=== PATIENT | male | born 1950 | race African-American/Black ===

== ENCOUNTER 2018-05-27 14:16 | Inpatient (IN) | payer OTHER ==
[2018-05-27] MEDS ORDERED: GlUCAGON HUMAN RECOMBINANT 1 MG/VIAL ONE ×2 (14:26→14:28)
[2018-05-27] MEDS ORDERED: DEXTROSE 50%-WATER - 25 GM/50 ML VIAL ONE ×2 (14:26→21:22)
[2018-05-27] MEDS ORDERED: SODIUM CHLORIDE 0.9% 1000 ML INFUS.BAG IV STA (14:39)
--- NOTE | 2018-05-27 14:39 | PDOC ---
Attending Attestation - Resident Resident Name: Marilynn Goldstein - ED Attending Attestation I have performed the following: I have examined & evaluated the patient, The case was reviewed & discussed with the resident, I agree w/resident's findings & plan, Exceptions are as noted - HPI HPI: 05/27/18 16:30 67 years old past medical history significant for alcoholic hepatitis, with cirrhosis and ascites, ferry to thrive, liver disease, resident at [facility] or for palliative care dysphasia muscle weakness and dementia, presents to the emergency department with hypoglycemia Upon arrival to the emergency department patient's fingerstick 30 IM glucagon given while IV access obtained One amp dextrose given as well Unable to obtain history from patient. Unable to obtain review of systems are patient. - Physicial Exam PE: 05/27/18 16:31 Vitals: Triage Vital signs reviewed General Appearance: Thin cachectic altered Head: Atraumatic, Eyes: Pupils equal reactive round, extraocular movement intact Chest Wall: Nontender Cardiac: Regular rate and rhythym,Lungs: Clear to auscultation bilateral, good air movement bilaterally, Abdomen: Soft, non distended, normal bowel sounds, non tender to palpation Extremities: Contracted Skin: See resident's note for full description of multiple ulcers Neuro: Moving all extremities in response to pain. - Medical Decision Making 05/27/18 16:33 67 years old with multiple medical problems presents to the emergency department with hypoglycemia Patient was responsive to IV dextrose Vital signs notable for hypothermia Kelsie hugger initiated. Sepsis protocol initiated. Multiple decubiti ulcer noted largest is at the left hip with involvement of bone Patient covered with IV Zosyn and vancomycin We'll be admitted to medicine for further management of hyperglycemia, possible sepsis, decubiti ulcer, hypothermia, with additional discussion of goals of care. Heart Score/ECG Review - ECG Impressions Comment:: 05/27/18 16:34 Poor baseline EKG but no QRS widening no peaked T waves no obvious ST elevations.
[2018-05-27 15:10] LABS: BASO % 0.6 % (0-2.0); HEMATOCRIT 24.8 % (35.4-49); HEMOGLOBIN 7.8 GM/dL (11.7-16.9); LYMPH % 6.1 % (8-40); MCH 25.5 pg (25.7-33.7); MCHC 31.5 g/dl (32.0-35.9); MEAN CELL VOLUME 80.9 fl (80-96); MEAN PLT VOLUME 9.6 fl (7.5-11.1); NEUT % 92.3 % (42.8-82.8); PLATELET COUNT 100 K/MM3 (134-434); RBC 3.07 M/mm3 (4.00-5.60); WHITE BLOOD COUNT 7.1 K/mm3 (4.0-10.0)
[2018-05-27 15:11] LABS: VENOUS PC02 40.2 mmHg (38-52); VENOUS PH 7.35 (7.32-7.42); VENOUS PO2 22.5 mmHg (28-48)
[2018-05-27 15:20] LABS: INR 2.12 (0.82-1.09)
[2018-05-27 15:32] LABS: URINE APPEARANCE CLEAR; URINE BILIRUBIN NEGATIVE (<2.0 mg/dL); URINE COLOR AMBER; URINE GLUCOSE (UA) NEGATIVE (NEGATIVE); URINE KETONE NEGATIVE (NEGATIVE); URINE LEUK ESTERASE NEGATIVE (NEGATIVE); URINE NITRITE NEGATIVE (NEGATIVE); URINE PROTEIN NEGATIVE (NEGATIVE); URINE UROBILINOGEN 4.0 E.U/dl mg/dL (0.2-1.0)
[2018-05-27 15:33] LABS: ALBUMIN 1.2 g/dl (3.4-5.0); ANION GAP 8 (8-16); BLOOD UREA NITROGEN 93 mg/dL (7-18); CALCIUM 7.4 mg/dL (8.5-10.1); CHLORIDE 116 mmol/L (98-107); CO2 23 mmol/L (21-32); CREATININE 2.1 mg/dL (0.7-1.3); GLUCOSE,RANDOM 181 mg/dL (74-106); POTASSIUM 5.9 mmol/L (3.5-5.1); SGOT/AST 270 U/L (15-37); SGPT/ALT 52 U/L (12-78); SODIUM 147 mmol/L (136-145)
[2018-05-27 15:40] LABS: ALK PHOS 494 U/L (45-117); BILIRUBIN,TOTAL 1.2 mg/dL (0.2-1.0); TOT PROT 8.3 g/dl (6.4-8.2)
[2018-05-27] MEDS ORDERED: VANCOMYCIN 1,000 MG in DEXTROSE 5%-WATER - 250 ML IVPB ONE (15:54)
[2018-05-27] MEDS ORDERED: PIPERACILLIN/TAZOB 4.5 GM 4.5 GM in DEXTROSE 5%-WATER 100 ML IVPB ONE (15:55)
[2018-05-27] MEDS ORDERED: SODIUM CHLORIDE 1,000 ML IV SCH (16:00)
--- NOTE | 2018-05-27 16:27 | PDOC ---
History of Present Illness - General Chief Complaint: Blood Sugar Problem Stated Complaint: LOW Sugar Problem Time Seen by Provider: 05/27/18 14:38 - History of Present Illness Initial Comments: 05/27/18 23:07 67 year old with recent diagnosis of liver CA who is BIBA from a nursing care facility with hypoglycemia of 24, and bradycardia of 40 systolic en route. He was given IM glucagon and one amp dextrose en route. He is alert but not oriented and minimally verbal. At bedside he had an initial glucose of 30, rectal temp of 91.3 with O2 sat of > 95% on 10L nonrebreather. Further history was unable to be obtained from patient. The patient is DNR. Past History - Past Medical History Allergies/Adverse Reactions: Allergies Allergy/AdvReac Type Severity Reaction Status Date / Time Fish Containing Products Allergy Intermediate Hives Verified 05/27/18 14:36 [Fish Product Derivatives] Home Medications: Ambulatory Orders Collagenase Clostridium Hist. [Santyl] 1 applic TP DAILY 05/27/18 Silver Sulfadiazine 1% Top Cr [Silvadene] 1 applic TP DAILY 05/27/18 oxyCODONE HCL [Roxicodone -] 5 mg PO Q4H 05/27/18 Anemia: No Asthma: Yes Cancer: No Cardiac Disorders: No CVA: No COPD: No CHF: No Dementia: No Diabetes: No GI Disorders: No Disorders: No HTN: No Hypercholesterolemia: No Kidney Stones: No Liver Disease: No Seizures: No Thyroid Disease: No - Surgical History Abdominal Surgery: No Appendectomy: No Cardiac Surgery: No Cholecystectomy: No Lung Surgery: No Neurologic Surgery: No Orthopedic Surgery: No (fx of left elbow 1980) - Reproductive History Testicular Surgery: No - Suicide/Smoking/Psychosocial Hx Smoking History: Unknown if ever smoked Have you smoked in the past 12 months: Yes Number of Cigarettes Smoked Daily: 20 Hx Alcohol Use: Yes Drug/Substance Use Hx: No Substance Use Type: Alcohol Hx Substance Use Treatment: Yes Review of Systems - Review of Systems Able to Perform ROS?: No (Alerted, non verbal) HEENTM: No: Tinnitus *Physical Exam - Vital Signs Last Vital Signs Temp Pulse Resp BP Pulse Ox 40 L 10 L 110/75 100 05/27/18 14:20 05/27/18 14:20 05/27/18 14:20 05/27/18 14:20 - Physical Exam Comments: 05/27/18 16:25 GENERAL: Awake alert, not oriented, contracted HEAD: No signs of trauma, normocephalic, atraumatic EYES: EOMI, sclera anicteric, conjunctiva clear ENT: dry appearing mucus membranes LUNGS: clear to auscultation bilaterally HEART: Regular rate and rhythm, normal S1 and S2, no murmurs, rubs or gallops, peripheral pulses normal and equal bilaterally. ABDOMEN: Soft, nontender, normoactive bowel sounds. No guarding, no rebound. No masses EXTREMITIES : contracted without clubbing NEUROLOGICAL: withdrawing from painful stimuli SKIN: dry skin with venous stasis changes and with multiple decubitus ulcers: R hip - 7cm diameter - stage 3 R leg medial aspect - 10cm length - stage 2 R leg lateral aspect - 10cm length - stage 2 R big toe base - 2cm - stage 2 L hip - 7cm diameter - stage 4 L leg lateral aspect - 12cm length - stage 2 L medial mallelous - 3cm - stage 2 Perinuem - 3cm - stage 2 ED Treatment Course - LABORATORY CBC & Chemistry Diagram: 05/27/18 14:55 05/27/18 20:08 - ADDITIONAL ORDERS Additional order review: Laboratory Results 05/27/18 05/27/18 05/27/18 14:55 14:55 14:55 PT with INR INR PTT (Actin FS) VBG pH 7.35 POC VBG pCO2 40.2 POC VBG pO2 22.5 L Mixed VBG HCO3 21.7 Sodium 147 H Potassium 5.9 H D Chloride 116 H D Carbon Dioxide 23 D Anion Gap 8 BUN 93 H Creatinine 2.1 H Creat Clearance w eGFR 31.76 Random Glucose 181 H D Lactic Acid 2.1 H Calcium 7.4 L Total Bilirubin 1.2 H AST 270 H D ALT 52 D Alkaline Phosphatase 494 H Troponin I < 0.02 Total Protein 8.3 H Albumin 1.2 L Urine Color Urine Appearance Urine pH Ur Specific [place] Urine Protein Urine Glucose (UA) Urine Ketones Urine Blood Urine Nitrite Urine Bilirubin Urine Urobilinogen Ur Leukocyte Esterase 05/27/18 05/27/18 14:55 14:30 PT with INR 24.00 H* INR 2.12 H PTT (Actin FS) 46.0 H VBG pH POC VBG pCO2 POC VBG pO2 Mixed VBG HCO3 Sodium Potassium Chloride Carbon Dioxide Anion Gap BUN Creatinine Creat Clearance w eGFR Random Glucose Lactic Acid Calcium Total Bilirubin AST ALT Alkaline Phosphatase Troponin I Total Protein Albumin Urine Color Lydia Urine Appearance Clear Urine pH 5.0 Ur Specific [place] 1.013 Urine Protein Negative Urine Glucose (UA) Negative Urine Ketones Negative Urine Blood Negative Urine Nitrite Negative Urine Bilirubin Negative Urine Urobilinogen 4.0 e.u/dl Ur Leukocyte Esterase Negative 05/27/18 14:55 RBC 3.07 L MCV 80.9 MCHC 31.5 L RDW 23.0 H MPV 9.6 D Neutrophils % 92.3 H Lymphocytes % 6.1 L Monocytes % 1.0 L Eosinophils % 0.0 Basophils % 0.6 Medical Decision Making - Medical Decision Making 05/27/18 19:21 67 year old with recent diagnosis of liver CA who is BIBA from a nursing care facility with hypoglycemia of 24, and bradycardia of 40 systolic en route. The patient has extensive ulcers, hypoglycemia, hypothermia and with K of 5.9. The patient requires further care and evaluation. 05/27/18 20:31 Plan to admit to ICU, does not need head CT before transport 05/27/18 23:27 Daughter contacted, Shelia [phone] *DC/Admit/Observation/Transfer Diagnosis at time of Disposition: Hypoglycemia, Hypothermia - Discharge Dispostion Condition at time of disposition: Guarded Decision to Admit order: Yes - Referrals - Patient Instructions - Post Discharge Activity
[2018-05-27] MEDS ORDERED: PIPERACILLIN/TAZOB 4.5 GM 4.5 GM/100 ML BAG IVPB ONE (16:35)
[2018-05-27] MEDS ORDERED: VANCOMYCIN 1 GRAM (PRE-DOCKED) 1,000 MG/250 ML BAG IVPB ONE (16:36)
[2018-05-27 18:29] LABS: ANISOCYTOSIS 2+
[2018-05-27 18:30] LABS: PLATELET ESTIMATE DECREASED; TARGET CELLS 1+
[2018-05-27 20:43] LABS: ANION GAP 11 (8-16); BLOOD UREA NITROGEN 96 mg/dL (7-18); CALCIUM 7.2 mg/dL (8.5-10.1); CHLORIDE 115 mmol/L (98-107); CO2 20 mmol/L (21-32); POTASSIUM 4.8 mmol/L (3.5-5.1); SODIUM 146 mmol/L (136-145)
[2018-05-27 20:57] LABS: GLUCOSE,RANDOM 24 mg/dL (74-106)
[2018-05-27] MEDS ORDERED: DEXTROSE 50%-WATER - 25 GM/50 ML VIAL IVPUSH ONE ×2 (20:58→20:59)
[2018-05-27] MEDS: SODIUM CHLORIDE 1,000 ML IV SCH ×2 (22:15→22:20)
[2018-05-27] MEDS ORDERED: PIPERACILLIN/TAZOB 3.375 GM 3.375 GM in DEXTROSE 5%-WATER - 50 ML IVPB ONE (22:16)
--- NOTE | 2018-05-27 22:20 | HP ---
CHIEF COMPLAINT: sepsis, hypothermia PCP: Fatmata HISTORY OF PRESENT ILLNESS: 67 year old with recent diagnosis of liver CA who is BIBA from a nursing care facility with hypoglycemia of 24, and bradycardia of 40 systolic en route. He was given IM glucagon and one amp dextrose en route. Patient is a very poor informant and unable to obtain much history form him and most of history is obtained from EMR. He has multiple decubitus ulcers that were foul smelling. Daughter contacted, Shelia [phone] ER course was notable for: (1) blood cultures taken (2) vancomcyin (3) zosyn Recent Travel: unknown PAST MEDICAL HISTORY: Liver cancer, etoh abuse PAST SURGICAL HISTORY: unknown Social History: Smoking: unknown Alcohol: unknown Drugs: unknown Family History: unknown Allergies Fish Containing Products [Fish Product Derivatives] Allergy (Intermediate, Verified 05/27/18 14:36) Hives DIFFICULTY BREATHING HOME MEDICATIONS: Home Medications Medication Instructions Recorded Collagenase Clostridium Hist. 1 applic TP DAILY 05/27/18 [Santyl] Silver Sulfadiazine 1% Top Cr 1 applic TP DAILY 05/27/18 [Silvadene] oxyCODONE HCL [Roxicodone -] 5 mg PO Q4H 05/27/18 REVIEW OF SYSTEMS - unable to obtain reviewed of systems as patient is non cooperative for interview PHYSICAL EXAMINATION Vital Signs - 24 hr 05/27/18 05/27/18 05/27/18 14:20 14:30 18:12 Temperature 91.2 F L Pulse Rate 40 L Pulse Rate [ 76 62 Apical] Respiratory 10 L 18 16 Rate Blood Pressure 110/75 Blood Pressure 125/84 128/75 [Right Arm] O2 Sat by Pulse 100 100 100 Oximetry (%) 05/27/18 18:30 Temperature 92.4 F L Pulse Rate Pulse Rate [ Apical] Respiratory Rate Blood Pressure Blood Pressure [Right Arm] O2 Sat by Pulse Oximetry (%) GENERAL: disoriented, malnourished, wasted HEAD:atraumatic, EYES: Pupils equal, round and reactive to light, extraocular movements intact, sclera anicteric, conjunctiva clear. No lid lag. EARS, NOSE, THROAT: Ears normal, nares patent, oropharynx clear without exudates. dry mucous membranes. NECK: Normal range of motion, supple without lymphadenopathy, JVD, or masses. LUNGS: Breath sounds equal, clear to auscultation bilaterally. No wheezes, and no crackles. No accessory muscle use. HEART: Regular rate and rhythm, normal S1 and S2 without murmur, rub or gallop. ABDOMEN: Soft, nontender, not distended, normoactive bowel sounds, no guarding, no rebound tenderness MUSCULOSKELETAL: Normal range of motion at all joints. No bony deformities or tenderness. UPPER EXTREMITIES: 2+ pulses, warm, well-perfused. No cyanosis. No clubbing. No peripheral edema. LOWER EXTREMITIES: wrapped in gauze covering ulcers NEUROLOGICAL: no focal deficits noted PSYCHIATRIC: uncooperative SKIN: several ulcer noted- R hip - 7cm diameter - stage 3 R leg medial aspect - 10cm length - stage 2 R leg lateral aspect - 10cm length - stage 2 R big toe base - 2cm - stage 2 L hip - 7cm diameter - stage 4 L leg lateral aspect - 12cm length - stage 2 L medial mallelous - 3cm - stage 2 Perinuem - 3cm - stage 2 Laboratory Results - last 24 hr 05/27/18 05/27/18 05/27/18 14:30 14:55 14:55 WBC 7.1 RBC 3.07 L Hgb 7.8 L Hct 24.8 L D MCV 80.9 MCH 25.5 L D MCHC 31.5 L RDW 23.0 H Plt Count 100 L D MPV 9.6 D Absolute Neuts (auto) 6.6 Neutrophils % 92.3 H Neutrophils % (Manual) 71.0 Band Neutrophils % 21.0 Lymphocytes % 6.1 L Lymphocytes % (Manual) 8.0 Monocytes % 1.0 L Monocytes % (Manual) 0 L Eosinophils % 0.0 Eosinophils % (Manual) 0.0 Basophils % 0.6 Basophils % (Manual) 0.0 Nucleated RBC % 0 Hypochromia 1+ Platelet Estimate Decreased Platelet Comment No clumping noted Anisocytosis 2+ Target Cells 1+ PT with INR 24.00 H* INR 2.12 H PTT (Actin FS) 46.0 H VBG pH POC VBG pCO2 POC VBG pO2 Mixed VBG HCO3 Sodium Potassium Chloride Carbon Dioxide Anion Gap BUN Creatinine Creat Clearance w eGFR Random Glucose Lactic Acid Calcium Total Bilirubin AST ALT Alkaline Phosphatase Troponin I Total Protein Albumin Urine Color Lydia Urine Appearance Clear Urine pH 5.0 Ur Specific [place] 1.013 Urine Protein Negative Urine Glucose (UA) Negative Urine Ketones Negative Urine Blood Negative Urine Nitrite Negative Urine Bilirubin Negative Urine Urobilinogen 4.0 e.u/dl Ur Leukocyte Esterase Negative Stool Occult Blood 05/27/18 05/27/18 05/27/18 14:55 14:55 14:55 WBC RBC Hgb Hct MCV MCH MCHC RDW Plt Count MPV Absolute Neuts (auto) Neutrophils % Neutrophils % (Manual) Band Neutrophils % Lymphocytes % Lymphocytes % (Manual) Monocytes % Monocytes % (Manual) Eosinophils % Eosinophils % (Manual) Basophils % Basophils % (Manual) Nucleated RBC % Hypochromia Platelet Estimate Platelet Comment Anisocytosis Target Cells PT with INR INR PTT (Actin FS) VBG pH 7.35 POC VBG pCO2 40.2 POC VBG pO2 22.5 L Mixed VBG HCO3 21.7 Sodium 147 H Potassium 5.9 H D Chloride 116 H D Carbon Dioxide 23 D Anion Gap 8 BUN 93 H Creatinine 2.1 H Creat Clearance w eGFR 31.76 Random Glucose 181 H D Lactic Acid 2.1 H Calcium 7.4 L Total Bilirubin 1.2 H AST 270 H D ALT 52 D Alkaline Phosphatase 494 H Troponin I < 0.02 Total Protein 8.3 H Albumin 1.2 L Urine Color Urine Appearance Urine pH Ur Specific [place] Urine Protein Urine Glucose (UA) Urine Ketones Urine Blood Urine Nitrite Urine Bilirubin Urine Urobilinogen Ur Leukocyte Esterase Stool Occult Blood 05/27/18 05/27/18 05/27/18 17:21 20:08 20:08 WBC RBC Hgb Hct MCV MCH MCHC RDW Plt Count MPV Absolute Neuts (auto) Neutrophils % Neutrophils % (Manual) Band Neutrophils % Lymphocytes % Lymphocytes % (Manual) Monocytes % Monocytes % (Manual) Eosinophils % Eosinophils % (Manual) Basophils % Basophils % (Manual) Nucleated RBC % Hypochromia Platelet Estimate Platelet Comment Anisocytosis Target Cells PT with INR INR PTT (Actin FS) VBG pH POC VBG pCO2 POC VBG pO2 Mixed VBG HCO3 Sodium 146 H Potassium 4.8 Chloride 115 H Carbon Dioxide 20 L Anion Gap 11 BUN 96 H Creatinine 2.0 H Creat Clearance w eGFR 33.60 Random Glucose 24 L* D Lactic Acid 3.0 H* Calcium 7.2 L Total Bilirubin AST ALT Alkaline Phosphatase Troponin I Total Protein Albumin Urine Color Urine Appearance Urine pH Ur Specific [place] Urine Protein Urine Glucose (UA) Urine Ketones Urine Blood Urine Nitrite Urine Bilirubin Urine Urobilinogen Ur Leukocyte Esterase Stool Occult Blood Negative CT of head -small left frontal subcortical white matter hypodense focus which may represent chronic or acute ischemic disease ekg reviewed- poor quality, will repeat ASSESSMENT/PLAN: 67yo cachectic man with recent diagnosis of liver ca, admitted for severe sepsis likely secondary sacral ulcers, hypothermia, requiring bairhugger and persistent hypoglycemia, incidentally, found to have small left frontal subcortical white matter hypodense focus on head CT. #severe sepsis with lactic acidosis, likely secondary to infected decubitus ulcers -admit to ICU -vancomycin 1g then by random daily levels -zosyn -gentle IV fluid hydration and repeat lactate in am -wound care to ulcers -ID consult #AMS -may be multifactorial- hypoglycemia, - vascular disease, metabolic derrangements, underlying malignancy, -fall precautions -bed rest #small left frontal subcortical white matter hypodense focus- uncertain if acute or chronic, not a candidate for TPA at this time -neurology evaluation - Dr. Jesus -ASA -statin -echo -carotid duplex # Hypothermia - likely secondary to sepsis - bairhugger -monitor temp #Hypoglycemia- now improved after glucagon and multiple dextose pushes - may be secondary to underlying liver ca -monitor fingerstick closely -start D5W/NS DVT prophylaxis -enaxaparin 40mg sc q24hrs #Advanced directives- DNR- spoke to daughter Shelia [phone] NPO for now - Visit type - Emergency Visit Emergency Visit: Yes ED Registration Date: 05/27/18 Care time: The patient presented to the Emergency Department on the above date and was hospitalized for further evaluation of their emergent condition. - New Patient This patient is new to me today: Yes Date on this admission: 05/28/18 - Critical Care Critical Care patient: Yes Total Critical Care Time (in minutes): 40 Critical Care Statement: The care of this patient involved high complexity decision making to prevent further life threatening deterioration of the patient 's condition and/or to evaluate & treat vital organ system(s) failure or risk of failure. Hospitalist Screening - Colonoscopy Questionnaire Colonoscopy Questionnaire: Colonoscopy Questionnaire - Patient: 50 - 75 years old and never had a screening colonoscopy: Yes History of colon or rectal polyps, or CA: Unknown History of IBD, Crohn's disease or UC: Unknown History of abdominal radiation therapy as a child: Unknown - Relative: 1 with colon or rectal CA, or polyps at age 60 or younger: Unknown Colon or rectal CA diagnosed at age 45 or younger: Unknown Multiple relatives with colon or rectal CA: Unknown - Outcome: Screening Result: Positive Screen
[2018-05-27 22:47] VITALS: BMI 18.8
[2018-05-27] MEDS ORDERED: PIPERACILLIN/TAZOBACTAM 3.375 GM VIAL IVPB ONE (22:52)
[2018-05-27] MEDS ORDERED: DEXTROSE 5%-WATER - 100 ML IVPB ONE (22:52)
[2018-05-27] MEDS: HEPARIN NA (PORCINE) 5,000 UNITS/ML 1ML VIAL SQ SCH (22:53)
[2018-05-28] MEDS ORDERED: ASPIRIN 81 MG CHEWABLE TABLETS PO ONE (01:43)
[2018-05-28] MEDS ORDERED: DEXTROSE 5%-WATER - 1,000 ML IV SCH (02:00)
[2018-05-28] MEDS ORDERED: DEXTROSE 50%-WATER 25 GM/50 ML DISP.SYRIN ONE ×3 (02:22→14:59)
[2018-05-28] MEDS ORDERED: DEXTROSE 50%-WATER - 25 GM/50 ML VIAL IVPUSH ONE ×2 (02:30→06:51)
[2018-05-28 05:48] LABS: BASO % 0.8 % (0-2.0); HEMATOCRIT 22.2 % (35.4-49); LYMPH % 10.1 % (8-40); MCH 25.6 pg (25.7-33.7); MCHC 31.4 g/dl (32.0-35.9); MEAN CELL VOLUME 81.4 fl (80-96); MEAN PLT VOLUME 9.9 fl (7.5-11.1); MONO % 1.5 % (3.8-10.2); NEUT % 87.6 % (42.8-82.8); RBC 2.73 M/mm3 (4.00-5.60); RDW 23.4 % (11.9-15.9); WHITE BLOOD COUNT 3.9 K/mm3 (4.0-10.0)
[2018-05-28] MEDS ORDERED: ATORVASTATIN CA 20 MG TABLET (FP) PO SCH (06:00)
[2018-05-28] MEDS: HEPARIN NA (PORCINE) 5,000 UNITS/ML 1ML VIAL SQ SCH ×3 (06:11→21:48)
[2018-05-28 06:19] LABS: ANION GAP 15 (8-16); BLOOD UREA NITROGEN 100 mg/dL (7-18); CHLORIDE 114 mmol/L (98-107); CO2 16 mmol/L (21-32); CREATININE 2.2 mg/dL (0.7-1.3); GLUCOSE,RANDOM 52 mg/dL (74-106); POTASSIUM 4.9 mmol/L (3.5-5.1); SODIUM 145 mmol/L (136-145)
[2018-05-28 06:24] LABS: CALCIUM 6.9 mg/dL (8.5-10.1)
[2018-05-28] MEDS ORDERED: PIPERACILLIN/TAZOB 3.375 GM 3.375 GM in DEXTROSE 5%-WATER - 50 ML IVPB ONE (07:06)
--- NOTE | 2018-05-28 08:14 | CONSULT ---
Consult - text type - Consultation Consultation Note: Pulm/CCM Pt seen and examined in ICU CC: hypothermic, hypoglycemic Hx obtained from medical record, pt encephalopathic HPI: Briefly Mr Fay is a 67 y/o man, resident of [place], with ETOH cirrhosis w/ end stage liver disease (ascites, coagulopathy, thrombocytopenia) who was admitted via ED for sepsis likely from multiple deep malodarous decubitus ulcer (most notably L hip), AMS, and ALBERTO. He was treated with fluid, abx, and glucagon /glucose. He had CT head which showed hypodense focus in L frontal for which he was given asa and statin (now discontinued). Pt responded well to IV glucose with improved mentation and FS appropriately increased. On exam pt is cachetic , wasted, and severely malnourished. He has a distended abd with ascites ( which has not been taped). While he is not in acute distress he does appear to be uncomfortable, especially with turning. He was made DNR by family. This morning I discussed his condition and trajectory with Daughter/HCP who agreed that we should not pursue aggressive measures. She confirmed DNR and agreed that he should not be placed on ventilator. We agreed that antibiotics and non- aggressive measures to sustain him should be done. Home Medications Medication Instructions Recorded Collagenase Clostridium Hist. 1 applic TP DAILY 05/27/18 [Santyl] Silver Sulfadiazine 1% Top Cr 1 applic TP DAILY 05/27/18 [Silvadene] oxyCODONE HCL [Roxicodone -] 5 mg PO Q4H 05/27/18 Active Medications Chlorhexidine Gluconate (Hibiclens For Decolonization -) 1 applic TP HS TIFFANIE Heparin Sodium (Porcine) (Heparin -) 5,000 unit SQ TID TIFFANIE Last Admin: 05/28/18 06:11 Dose: 5,000 unit Sodium Chloride (Normal Saline -) 1,000 mls @ 80 mls/hr IV ASDIR TIFFANIE Last Admin: 05/27/18 22:20 Dose: 80 mls/hr Dextrose (D5w -) 1,000 mls @ 42 mls/hr IV ASDIR TIFFANIE Last Admin: 05/28/18 02:26 Dose: 42 mls/hr Mupirocin (Bactroban Ointment (For Decolonization) -) 1 applic NS BID [facility] Stop: 08/02/18 09:59 Recent Travel: unknown PAST MEDICAL HISTORY: Liver cancer, etoh abuse PAST SURGICAL HISTORY: unknown Social History: Smoking: unknown Alcohol: unknown Drugs: unknown Family History: unknown Allergies Fish Containing Products [Fish Product Derivatives] Allergy (Intermediate, Verified 05/27/18 14:36) Hives DIFFICULTY BREATHING Vital Signs Temp 97.6 F 05/28/18 06:00 Pulse 82 05/28/18 06:00 Resp 18 05/28/18 06:00 BP 86/50 05/28/18 06:00 Pulse Ox 100 05/27/18 22:40 Intake & Output 05/27/18 05/27/18 05/28/18 11:59 23:59 11:59 Intake Total 504 Balance 504 Weight 56.019 kg Intake: IV 504 D5w - 1,000 ml @ 42 mls/ 504 hr IV ASDIR TIFFANIE Rx#: [id number] Other: Voiding Method Incontinent # Unmeasured Voids Void 1 2 Bowel Movement Yes Yes # Bowel Movements 1 2 Height 5 ft 8 in Body Mass Index (BMI) 18.8 Weight Measurement Method Built in [facility] Weight Measurement Method Estimated by Staff PE: Gen: wasted, eld man, position in bed HEENT: non icteric, bitemporal wasting, eomi, no obvious thrush PULM: few scattered crackles, no wheezes CV: s1s2, no m/r/g appreciated ABD; diffuse, mild tenderness, ascites, no caput EXT; multiple areas of breakdown on all bony prominences NEURO; mildly confused, withdrawals to pain, does not CBCD WBC 3.9 K/mm3 (4.0-10.0) L 05/28/18 05:30 RBC 2.73 M/mm3 (4.00-5.60) L 05/28/18 05:30 Hgb 7.0 GM/dL (11.7-16.9) L 05/28/18 05:30 Hct 22.2 % (35.4-49) L 05/28/18 05:30 MCV 81.4 fl (80-96) 05/28/18 05:30 MCHC 31.4 g/dl (32.0-35.9) L 05/28/18 05:30 RDW 23.4 % (11.9-15.9) H 05/28/18 05:30 Plt Count 100 K/MM3 (134-434) L D 05/27/18 14:55 MPV 9.9 fl (7.5-11.1) 05/28/18 05:30 CMP Sodium 145 mmol/L (136-145) 05/28/18 05:30 Potassium 4.9 mmol/L (3.5-5.1) 05/28/18 05:30 Chloride 114 mmol/L (98-107) H 05/28/18 05:30 Carbon Dioxide 16 mmol/L (21-32) L 05/28/18 05:30 Anion Gap 15 (8-16) 05/28/18 05:30 BUN 100 mg/dL (7-18) H 05/28/18 05:30 Creatinine 2.2 mg/dL (0.7-1.3) H 05/28/18 05:30 Creat Clearance w eGFR 30.10 (>60) 05/28/18 05:30 Random Glucose 52 mg/dL (74-106) L D 05/28/18 05:30 Calcium 6.9 mg/dL (8.5-10.1) L* 05/28/18 05:30 Total Bilirubin 1.2 mg/dL (0.2-1.0) H 05/27/18 14:55 AST 270 U/L (15-37) H D 05/27/18 14:55 ALT 52 U/L (12-78) D 05/27/18 14:55 Alkaline Phosphatase 494 U/L (45-117) H 05/27/18 14:55 Total Protein 8.3 g/dl (6.4-8.2) H 05/27/18 14:55 Albumin 1.2 g/dl (3.4-5.0) L 05/27/18 14:55 CARDIAC ENZYMES Troponin I < 0.02 ng/ml (0.00-0.05) 05/27/18 14:55 Blood and urine cxl pending EKG: Sinus, rate 80, TW flattening in lateral leads, normal intervals and access CXR: R> L effusion, ?hepatohydrothorax A/ 67 y/o man with ESLD now with hypoglycemia and sepsis likely from multiple decubitus ulcers and possible SBP improving on abx and IV fluids P/ -abx as per ID, vanc by level, pip/sera -cont IV D5--to D10 -no asa or statin given coagulopathy and hepatic failure -given goals of care as discussed with daughter...will d/c CVA workup -speech and swallow -pall care consult -WO nursenavarro -DNR/DNI Yamila CEDILLO [id number] Critical Care Total Critical Care Time (in minutes): 35 Critical Care Statement: The care of this patient involved high complexity decision making to prevent further life threatening deterioration of the patient 's condition and/or to evaluate & treat vital organ system(s) failure or risk of failure.
--- NOTE | 2018-05-28 08:16 | PN ---
Progress Note (short form) - Note Progress Note: ID consult dictated NH and ER records reviewed imp/reccd 67 year old man transferred from [place] with alcoholic cirrhosis and failure to thrive- sent to ED with hypoglycemia,hypothermia, hypotension and bradycardia He was unresponsive but became more alert after receiving D50 He is cachectic and has multiple skin pressure ulcers Sepsis-lactic acid 7.2 Endstage liver disease- alcoholic liver cirrhosis with elevated INR and abnl LFTs, ascites Acute renal failure multiple infected pressure ulcers-need debridement- extensive and foulsmelling with exposed bone sources of sepsis includes multiple infected skin ulcers, SBP, pneumonia ?hepatorenal continue vancomycin by levels continue zosyn adjusted for ALBERTO consider imaging of abdomen- ultrasound over 45 minutes spent in the care of this icu patient palliative care seems appropriate d/w 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
[2018-05-28] MEDS ORDERED: VANCOMYCIN 1 GM PREMIX - 1 GM/200 ML BAG IVPB SCH (08:30)
[2018-05-28] MEDS ORDERED: DEXTROSE 5%-WATER - 50 ML IVPB ONE ×3 (08:45→21:32)
[2018-05-28] MEDS ORDERED: PIPERACILLIN/TAZOBACTAM 3.375 GM VIAL IVPB ONE (08:45)
[2018-05-28] MEDS ORDERED: DEXTROSE 10%-WATER - 500 ML IV SCH (09:15)
[2018-05-28 09:25] LABS: ANISOCYTOSIS 1+; MACROCYTOSIS 0; PLATELET ESTIMATE DECREASED; TARGET CELLS 1+
--- NOTE | 2018-05-28 09:26 | CONS ---
INFECTIOUS DISEASE CONSULTATION DATE OF CONSULTATION: DATE OF DICTATION: 05/28/2018 REQUESTING PHYSICIAN: The hospitalist service. Patient was seen in the intensive care unit. This is a 67-year-old man [facility] recently admitted in April. He has a history of alcoholic cirrhosis. He presented. He was unresponsive with a blood sugar of 24, bradycardia of 40. He was hypotensive and hypothermic. He was given glucagon and D50 en route to the hospital. He was noted in the emergency room to have multiple foul-smelling decubitus ulcers. He was given dextrose and fluids and transferred to the ICU. He is currently awake. He knows his name. He knows that he is in the hospital. He is really unable to give any other history regarding his healthcare. PAST MEDICAL HISTORY: Notable for history of alcoholic hepatitis. Per the H&P, he reports a history of liver cancer that has not been confirmed. SURGICAL HISTORY: Unknown. He has had multiple admissions to the detoxification facility for alcohol use in the past. SOCIAL HISTORY: Currently, he is residing at the jail; otherwise, unknown substance use history besides alcohol. ALLERGIES: He is allergic to FISH which causes hives. MEDICATIONS: At the jail include collagenase, Silvadene, and oxycodone. REVIEW OF SYSTEMS: He denies any shortness of breath. Currently, he is comfortable and has no complaints. PHYSICAL EXAMINATION: Vital Signs: His current temperature is 97.6. On admission, he was 91.2. Pulse of 82, blood pressure 86/50, respiratory rate is 18. General: He is responsive. HEENT: He has temporal wasting. He has cachexia. Lungs: Diminished breath sounds at the bases. Neck: Supple. Heart: Regular rate and rhythm. Abdomen: Distended. He has ascites. He has discomfort on deep palpation but no rebound. Extremities: Notable for multiple abscesses. He has bilateral ischial pressure ulcers which the left ulcer, his bone is exposed, his femur. They are foul smelling, bilateral, and draining. He has multiple linear, stage 2 ulcers on both his legs that are, as well, necrotic and discolored. LABORATORY DATA: His labs are notable for a white count on admission of 7.1. This morning is 3.9. Hemoglobin 7. Platelets last night were 100. This morning are pending. INR is 2.12. His BUN is 100 and creatinine 2.2 with a glucose this morning of 52. Lactic acid is 7.2. Liver tests: His total bilirubin is 1.2 with AST of 270, ALT of 52, alkaline phosphatase of 494. Urinalysis was negative. Stool occult blood was negative. Random vancomycin level this morning is 12. Blood cultures and urine cultures are pending. Chest x-ray shows an increased right lung marking, most consistent with a right pleural effusion. In summary, this is a 67-year-old man with sepsis, end-stage liver disease, acute renal failure, multiple infected pressure ulcers, questionable diagnosis of liver cancer. Sources of sepsis include skin, possible peritonitis, SBP, and pneumonia. He may be hepatorenal as well. His overall status is extremely critical. Would continue vancomycin by levels. Would continue Zosyn adjusted for acute kidney injury. Consider imaging of the abdomen, ultrasound to look at his liver and kidneys. Palliative care seems quite appropriate given the multiple end-stage diagnoses this patient carries. Case was discussed at length with the office specialist who will speak with the family about goals of care. Would continue vancomycin and Zosyn for now. Over 45 minutes were spent for the care of this patient including examining his wounds, reading his jail and emergency room records, and discussing his care with the office specialist. SHREYAS DAMICO M.D. [id number]
[2018-05-28 09:43] LABS: PLATELET COUNT 66.9 K/MM3 (134-434)
[2018-05-28] MEDS: PIPERACILLIN/TAZOB 2.25 GM 2.25 GM in DEXTROSE 5%-WATER - 50 ML IVPB SCH ×3 (09:48→21:47)
[2018-05-28] MEDS ORDERED: DEXTROSE 50%-WATER - 25 GM/50 ML VIAL IVPUSH PRN (11:45)
[2018-05-28] MEDS ORDERED: PT OWN MED DRAWER 7, Y5N ONE (11:47)
[2018-05-28] MEDS: MUPIROCIN 2% TOPICAL OINTMENT FOR DECOLONIZATION NS SCH ×2 (12:00→21:48)
--- NOTE | 2018-05-28 12:13 | CONSULT ---
Consult - text type - Consultation Consultation Note: Neurology CHIEF COMPLAINT: sepsis, hypothermia HISTORY OF PRESENT ILLNESS: Covering for Dr. Jesus 67 year old with recent diagnosis of liver CA who was BIBA from a nursing care facility with ETOH cirrhosis w/ end stage liver disease (ascites, coagulopathy, thrombocytopenia) who was admitted via ED for sepsis likely from multiple deep malodarous decubitus ulcer (most notably L hip), AMS, and ALBERTO. Noted to have hypoglycemia of 24, and bradycardia of 40 systolic en route. He was given IM glucagon and one amp dextrose en route as well as fluids and abx. CT head showed hypodense focus in L frontal for which he was given asa and statin (now discontinued), age indeterminate. Pt responded well to medical mgmt and currently in ICU under close monitoring. Seen at bedside with nurse, awake and alert, was able to tell me he's in the hospital when asked. Further, said he's in [facility] when asked specific name. Could not give date but is improving. Per notes, DNR/DNI. Recent Travel: unknown PAST MEDICAL HISTORY: Liver cancer, etoh abuse PAST SURGICAL HISTORY: unknown Social History: Smoking: unknown Alcohol: unknown Drugs: unknown Family History: unknown Allergies Fish Containing Products [Fish Product Derivatives] Allergy (Intermediate, Verified 05/27/18 14:36) Hives DIFFICULTY BREATHING Active Medications Chlorhexidine Gluconate (Hibiclens For Decolonization -) 1 applic TP HS TIFFANIE Heparin Sodium (Porcine) (Heparin -) 5,000 unit SQ TID TIFFANIE Last Admin: 05/28/18 06:11 Dose: 5,000 unit Sodium Chloride (Normal Saline -) 1,000 mls @ 80 mls/hr IV ASDIR TIFFANIE Last Admin: 05/27/18 22:20 Dose: 80 mls/hr Vancomycin HCl (Vancomycin 1 Gm Premix -) 1 gm in 200 mls @ 200 mls/hr IVPB Q24H TIFFANEI; Protocol Stop: 05/29/18 08:29 Last Admin: 05/28/18 12:04 Dose: 200 mls/hr Piperacillin Sod/Tazobactam (Sod 2.25 gm/ Dextrose) 50 mls @ 100 mls/hr IVPB Q6H-IV TIFFANIE; Protocol Last Admin: 05/28/18 09:48 Dose: Not Given Dextrose (D10w (500 Ml Bag) -) 500 mls @ 42 mls/hr IV ASDIR TIFFANIE Last Admin: 05/28/18 09:49 Dose: 42 mls/hr Mupirocin (Bactroban Ointment (For Decolonization) -) 1 applic NS BID TIFFANIE Stop: 06/02/18 09:59 Last Admin: 05/28/18 12:00 Dose: 1 applic REVIEW OF SYSTEMS - unable to obtain reviewed of systems as patient is non cooperative for interview PHYSICAL EXAMINATION Vital Signs Period Temp Pulse Resp BP Sys/Caceres Pulse Ox Last 24 Hr 91.2 F-97.7 F 40-85 10-24 86-128/50-84 97-100 GENERAL: disoriented, malnourished, wasted HEAD:atraumatic, EYES: Pupils equal, round and reactive to light, extraocular movements intact, sclera anicteric, conjunctiva clear. No lid lag. EARS, NOSE, THROAT: Ears normal, nares patent, oropharynx clear without exudates. dry mucous membranes. NECK: Normal range of motion, supple without lymphadenopathy, JVD, or masses. LUNGS: Breath sounds equal, clear to auscultation bilaterally. No wheezes, and no crackles. No accessory muscle use. HEART: Regular rate and rhythm, normal S1 and S2 without murmur, rub or gallop. ABDOMEN: Soft, nontender, not distended, normoactive bowel sounds, no guarding, no rebound tenderness MUSCULOSKELETAL: Normal range of motion at all joints. No bony deformities or tenderness. UPPER EXTREMITIES: 2+ pulses, warm, well-perfused. No cyanosis. No clubbing. No peripheral edema. LOWER EXTREMITIES: wrapped in gauze covering ulcers NEUROLOGICAL: Awake, alert, no slurred speech, minimal cooperation on motor exam, lower ext contracted, sensory intact to tactile stim in face CBCD WBC 3.9 K/mm3 (4.0-10.0) L 05/28/18 05:30 RBC 2.73 M/mm3 (4.00-5.60) L 05/28/18 05:30 Hgb 7.0 GM/dL (11.7-16.9) L 05/28/18 05:30 Hct 22.2 % (35.4-49) L 05/28/18 05:30 MCV 81.4 fl (80-96) 05/28/18 05:30 MCHC 31.4 g/dl (32.0-35.9) L 05/28/18 05:30 RDW 23.4 % (11.9-15.9) H 05/28/18 05:30 Plt Count 66.9 K/MM3 (134-434) L D 05/28/18 05:30 MPV 9.9 fl (7.5-11.1) 05/28/18 05:30 CMP Sodium 145 mmol/L (136-145) 05/28/18 05:30 Potassium 4.9 mmol/L (3.5-5.1) 05/28/18 05:30 Chloride 114 mmol/L (98-107) H 05/28/18 05:30 Carbon Dioxide 16 mmol/L (21-32) L 05/28/18 05:30 Anion Gap 15 (8-16) 05/28/18 05:30 BUN 100 mg/dL (7-18) H 05/28/18 05:30 Creatinine 2.2 mg/dL (0.7-1.3) H 05/28/18 05:30 Creat Clearance w eGFR 30.10 (>60) 05/28/18 05:30 Random Glucose 52 mg/dL (74-106) L D 05/28/18 05:30 Calcium 6.9 mg/dL (8.5-10.1) L* 05/28/18 05:30 Total Bilirubin 1.2 mg/dL (0.2-1.0) H 05/27/18 14:55 AST 270 U/L (15-37) H D 05/27/18 14:55 ALT 52 U/L (12-78) D 05/27/18 14:55 Alkaline Phosphatase 494 U/L (45-117) H 05/27/18 14:55 Total Protein 8.3 g/dl (6.4-8.2) H 05/27/18 14:55 Albumin 1.2 g/dl (3.4-5.0) L 05/27/18 14:55 CARDIAC ENZYMES Troponin I < 0.02 ng/ml (0.00-0.05) 05/27/18 14:55 CT of head -small left frontal subcortical white matter hypodense focus which may represent chronic or acute ischemic disease ASSESSMENT/PLAN: 67 year old with recent diagnosis of liver CA who was BIBA from a nursing care facility with ETOH cirrhosis w/ end stage liver disease (ascites, coagulopathy, thrombocytopenia) who was admitted via ED for sepsis likely from multiple deep malodarous decubitus ulcer (most notably L hip), AMS, and ALBERTO. Noted to have hypoglycemia of 24, and bradycardia of 40 systolic en route. He was given IM glucagon and one amp dextrose en route as well as fluids and abx. CT head showed hypodense focus in L frontal for which he was given asa and statin (now discontinued), age indeterminate. Pt responded well to medical mgmt and currently in ICU under close monitoring. Seen at bedside with nurse, awake and alert, was able to tell me he's in the hospital when asked. Further, said he's in [facility] when asked specific name. Could not give date but is improving. Per notes, DNR/DNI. Discussed with ICU attending Continue medical optimization IV Abx for sepsis likely 2/2 decub wound care turnings as needed Monitor glucose, maintain normal range IV fluids, hydration as needed to maintain blood pressure support Will order MRI brain to determine acuity of infarct, age indeterminate on CT DVT ppx Critical care time 40 mins
[2018-05-28] MEDS ORDERED: PIPERACILLIN/TAZOBACTAM 2.25 GM VIAL IVPB ONE ×2 (14:58→21:32)
--- NOTE | 2018-05-28 15:57 | PN ---
Progress Note, Physician Chief Complaint: Hypothermia Hypoglycemia History of Present Illness: 67 yo man, resident of [facility], with ETOH cirrhosis w/ end stage liver disease (ascites, coagulopathy, thrombocytopenia) who was admitted overnight for hypoglycemia, bradycardia and sepsis likely from multiple deep malodarous decubitus ulcer (most notably L hip), AMS, and ALBERTO, treated with IVF, abx, and glucagon/glucose. CT head showed hypodense focus in left frontal for which he was given asa and statin (now discontinued). Pt responded well to IV glucose with improved mentation and euglycemia. Pt is cachetic, wasted, and severely malnourished. He has a distended abd with ascites. While he is not in acute distress he does appear to be uncomfortable, especially with turning. He has been made DNR by family. - Current Medication List Current Medications: Active Medications Chlorhexidine Gluconate (Hibiclens For Decolonization -) 1 applic TP HS TIFFANIE Heparin Sodium (Porcine) (Heparin -) 5,000 unit SQ TID TIFFANIE Last Admin: 05/28/18 15:00 Dose: 5,000 unit Sodium Chloride (Normal Saline -) 1,000 mls @ 80 mls/hr IV ASDIR [facility] Last Admin: 05/27/18 22:20 Dose: 80 mls/hr Vancomycin HCl (Vancomycin 1 Gm Premix -) 1 gm in 200 mls @ 200 mls/hr IVPB Q24H TIFFANIE; Protocol Stop: 05/29/18 08:29 Last Admin: 05/28/18 12:04 Dose: 200 mls/hr Piperacillin Sod/Tazobactam (Sod 2.25 gm/ Dextrose) 50 mls @ 100 mls/hr IVPB Q6H-IV TIFFANIE; Protocol Last Admin: 05/28/18 15:00 Dose: 100 mls/hr Dextrose (D10w (500 Ml Bag) -) 500 mls @ 42 mls/hr IV ASDIR [facility] Last Admin: 05/28/18 09:49 Dose: 42 mls/hr Mupirocin (Bactroban Ointment (For Decolonization) -) 1 applic NS BID [facility] Stop: 06/02/18 09:59 Last Admin: 05/28/18 12:00 Dose: 1 applic - Objective Vital Signs: Vital Signs Temperature 96.3 F L 05/28/18 14:00 Pulse Rate 76 07/28/18 14:00 Respiratory Rate 23 05/28/18 14:00 Blood Pressure 100/69 05/28/18 14:00 O2 Sat by Pulse Oximetry (%) 100 05/28/18 09:00 Constitutional: Yes: No Distress, Calm, Cachectic Cardiovascular: Yes: Regular Rate and Rhythm Respiratory: Yes: Diminished Neurological: Yes: Alert, Pre-Existing Deficit Psychiatric: Yes: Alert Labs: CBC, BMP 05/28/18 05:30 05/28/18 05:30 INR, PTT INR 2.12 (0.82-1.09) H 05/27/18 14:55 Problem List - Problems (1) Acute renal failure Assessment/Plan: -nephrology consult -IVF -possible hepatorenal syndrome -U/S abdomen to confirm -monitor trend Code(s): N17.9 - ACUTE KIDNEY FAILURE, UNSPECIFIED (2) End-stage liver disease Assessment/Plan: due to hx of ETOH Code(s): K72.90 - HEPATIC FAILURE, UNSPECIFIED WITHOUT COMA (3) Hypoglycemia Assessment/Plan: -Improved -On IV dextrose -monitor BG closely Code(s): E16.2 - HYPOGLYCEMIA, UNSPECIFIED (4) Hypothermia Assessment/Plan: -Kelsie hugger -rectal temps Code(s): T68.XXXA - HYPOTHERMIA, INITIAL ENCOUNTER (5) Infected decubitus ulcer Assessment/Plan: -On IV vanco and Zosyn -ID on board -Wound culture Code(s): L89.90 - PRESSURE ULCER OF UNSPECIFIED SITE, UNSPECIFIED STAGE; L08.9 - LOCAL INFECTION OF THE SKIN AND SUBCUTANEOUS TISSUE, UNSP (6) Sepsis Assessment/Plan: -Elevated LA -repeat in AM -IV abx -IVF -ID consult Code(s): A41.9 - SEPSIS, UNSPECIFIED ORGANISM Assessment/Plan see problem list Pt DNR/DNI Palliative consult to discuss Hospice vs Palliative DVT prophylaxis Dispo: [facility]
[2018-05-28] MEDS ORDERED: CHLORHEXIDINE GLUCONATE 4% CLEANSER FOR DECOLONIZATION TP SCH (22:00)
[2018-05-29] MEDS ORDERED: PIPERACILLIN/TAZOBACTAM 2.25 GM VIAL IVPB ONE ×2 (00:56→09:53)
[2018-05-29] MEDS ORDERED: DEXTROSE 5%-WATER - 50 ML IVPB ONE ×2 (00:56→09:53)
[2018-05-29] MEDS ORDERED: DEXTROSE 50%-WATER 25 GM/50 ML DISP.SYRIN ONE (00:57)
[2018-05-29] MEDS: PIPERACILLIN/TAZOB 2.25 GM 2.25 GM in DEXTROSE 5%-WATER - 50 ML IVPB SCH ×2 (02:07→10:29)
[2018-05-29 05:39] LABS: HEMATOCRIT 22.3 % (35.4-49); MCH 25.9 pg (25.7-33.7); MCHC 31.5 g/dl (32.0-35.9); MEAN CELL VOLUME 82.4 fl (80-96); MEAN PLT VOLUME 9.9 fl (7.5-11.1); RBC 2.71 M/mm3 (4.00-5.60); RDW 24.1 % (11.9-15.9); WHITE BLOOD COUNT 9.4 K/mm3 (4.0-10.0)
[2018-05-29] MEDS ORDERED: SODIUM CHLORIDE 1,000 ML IV SCH (06:00)
[2018-05-29] MEDS: HEPARIN NA (PORCINE) 5,000 UNITS/ML 1ML VIAL SQ SCH (06:03)
[2018-05-29 06:25] LABS: ALBUMIN 1.1 g/dl (3.4-5.0); ALK PHOS 429 U/L (45-117); ANION GAP 16 (8-16); BILIRUBIN,TOTAL 1.7 mg/dL (0.2-1.0); BLOOD UREA NITROGEN 93 mg/dL (7-18); CHLORIDE 112 mmol/L (98-107); CO2 17 mmol/L (21-32); CREATININE 2.3 mg/dL (0.7-1.3); GLUCOSE,RANDOM 76 mg/dL (74-106); POTASSIUM 4.4 mmol/L (3.5-5.1); SGOT/AST 234 U/L (15-37); SGPT/ALT 50 U/L (12-78); SODIUM 145 mmol/L (136-145); TOT PROT 7.8 g/dl (6.4-8.2)
[2018-05-29 06:27] LABS: CALCIUM 6.9 mg/dL (8.5-10.1)
[2018-05-29] MEDS: DEXTROSE 10%-WATER - 500 ML IV SCH (06:45)
--- NOTE | 2018-05-29 08:13 | PN ---
Progress Note (short form) - Note Progress Note: Imore awake but confeused cachetic Vital Signs Period Temp Pulse Resp BP Sys/Caceres Pulse Ox Last 24 Hr 96.2 F-97.7 F 70-78 18-23 94-129/54-99 100-100 cor-rrr lungs scattered rhonchi abd soft, diffuse discomfort to palpation, +ascites ext dressings intact, ulcers CBC, BMP 05/29/18 05:30 05/29/18 05:30 Microbiology 05/27/18 14:30 Blood - Peripheral Venous Blood Culture - Preliminary NO GROWTH OBTAINED AFTER 24 HOURS, INCUBATION TO CONTINUE FOR 4 DAYS. 05/27/18 15:10 Blood - Peripheral Venous Blood Culture - Preliminary NO GROWTH OBTAINED AFTER 24 HOURS, INCUBATION TO CONTINUE FOR 4 DAYS. vanco level 12.4 Current Medications Chlorhexidine Gluconate (Hibiclens For Decolonization -) 1 applic TP HS TIFFANIE Last Admin: 05/28/18 21:48 Dose: 1 applic Heparin Sodium (Porcine) (Heparin -) 5,000 unit SQ TID TIFFANIE Last Admin: 05/29/18 06:03 Dose: 5,000 unit Vancomycin HCl (Vancomycin 1 Gm Premix -) 1 gm in 200 mls @ 200 mls/hr IVPB Q24H TIFFANIE; Protocol Stop: 05/29/18 08:29 Last Admin: 05/28/18 12:04 Dose: 200 mls/hr Piperacillin Sod/Tazobactam (Sod 2.25 gm/ Dextrose) 50 mls @ 100 mls/hr IVPB Q6H-IV TIFFANIE; Protocol Last Admin: 05/29/18 02:07 Dose: 100 mls/hr Dextrose (D10w (500 Ml Bag) -) 500 mls @ 50 mls/hr IV ASDIR TIFFANIE Last Admin: 05/29/18 06:45 Dose: Not Given Sodium Chloride (Normal Saline -) 1,000 mls @ 25 mls/hr IV ASDIR TIFFANIE Last Admin: 05/29/18 06:45 Dose: Not Given Mupirocin (Bactroban Ointment (For Decolonization) -) 1 applic NS BID TIFFANIE Stop: 06/02/18 09:59 Last Admin: 05/28/18 21:48 Dose: 1 applic a/p Sepsis-lactic acid 7.2 Endstage liver disease- alcoholic liver cirrhosis with elevated INR and abnl LFTs, ascites Acute renal failure multiple infected pressure ulcers-need debridement- +exposed bone redose vancomycin today continue zosyn overall prognosis is poor dnr/dni Problem List - Problems (1) Sepsis Code(s): A41.9 - SEPSIS, UNSPECIFIED ORGANISM (2) End-stage liver disease Code(s): K72.90 - HEPATIC FAILURE, UNSPECIFIED WITHOUT COMA (3) Infected decubitus ulcer Code(s): L89.90 - PRESSURE ULCER OF UNSPECIFIED SITE, UNSPECIFIED STAGE; L08.9 - LOCAL INFECTION OF THE SKIN AND SUBCUTANEOUS TISSUE, UNSP (4) Acute renal failure Code(s): N17.9 - ACUTE KIDNEY FAILURE, UNSPECIFIED
--- NOTE | 2018-05-29 09:03 | PN ---
Progress Note (short form) - Note Progress Note: PULM/CCM Pt seen and examined in ICU Subjective: 24Hr: -more awake -dyspneic and uncomfortable laying flat, aborting MRI---only diagnostic value -BP stable, Crit stable -Bili and Cr uptrending slightly -wbc up but afebrile -wants to eat, ordered pureed diet Vital Signs Temp 96.2 F L 05/29/18 06:00 Pulse 72 05/29/18 06:00 Resp 18 05/29/18 06:00 BP 112/99 05/29/18 06:00 Pulse Ox 100 05/28/18 20:00 Intake & Output 05/28/18 05/28/18 05/29/18 11:59 23:59 11:59 Intake Total 504 1604 1254 Balance 504 1604 1254 Intake: IV 504 1304 1104 D10w (500 ml Bag) - 500 336 600 ml @ 42 mls/hr IV ASDIR TIFFANIE Rx#:[id number] D5w - 1,000 ml @ 42 mls/ 504 168 hr IV ASDIR TIFFANIE Rx#: [id number] Normal Saline - 1,000 ml 800 504 @ 80 mls/hr IV ASDIR TIFFANIE Rx#:[id number] IVPB 300 100 Oral 50 Other: Voiding Method Incontinent Incontinent Incontinent # Unmeasured Voids Void 2 1 3 Bowel Movement Yes Yes Yes # Bowel Movements 2 1 3 CBCD WBC 9.4 K/mm3 (4.0-10.0) 05/29/18 05:30 RBC 2.71 M/mm3 (4.00-5.60) L 05/29/18 05:30 Hgb 7.0 GM/dL (11.7-16.9) L 05/29/18 05:30 Hct 22.3 % (35.4-49) L 05/29/18 05:30 MCV 82.4 fl (80-96) 05/29/18 05:30 MCHC 31.5 g/dl (32.0-35.9) L 05/29/18 05:30 RDW 24.1 % (11.9-15.9) H 05/29/18 05:30 Plt Count 66.9 K/MM3 (134-434) L D 05/28/18 05:30 MPV 9.9 fl (7.5-11.1) 05/29/18 05:30 CMP Sodium 145 mmol/L (136-145) 05/29/18 05:30 Potassium 4.4 mmol/L (3.5-5.1) 05/29/18 05:30 Chloride 112 mmol/L (98-107) H 05/29/18 05:30 Carbon Dioxide 17 mmol/L (21-32) L 05/29/18 05:30 Anion Gap 16 (8-16) 05/29/18 05:30 BUN 93 mg/dL (7-18) H 05/29/18 05:30 Creatinine 2.3 mg/dL (0.7-1.3) H 05/29/18 05:30 Creat Clearance w eGFR 28.59 (>60) 05/29/18 05:30 Calcium 6.9 mg/dL (8.5-10.1) L* 05/29/18 05:30 Total Bilirubin 1.7 mg/dL (0.2-1.0) H 05/29/18 05:30 AST 234 U/L (15-37) H 05/29/18 05:30 ALT 50 U/L (12-78) 05/29/18 05:30 Alkaline Phosphatase 429 U/L (45-117) H D 05/29/18 05:30 Total Protein 7.8 g/dl (6.4-8.2) 05/29/18 05:30 Albumin 1.1 g/dl (3.4-5.0) L 05/29/18 05:30 PE: Gen: wasted, eld man, position in bed HEENT: non icteric, bitemporal wasting, eomi, no obvious thrush PULM: few scattered crackles, no wheezes CV: s1s2, no m/r/g appreciated ABD; diffuse, mild tenderness, ascites, no caput EXT; multiple areas of breakdown on all bony prominences NEURO; mildly confused, withdrawals to pain, does not want to be moved, more awake today A/ 67 y/o man with ESLD now with hypoglycemia and sepsis likely from multiple decubitus ulcers and possible SBP improving on abx and IV fluids P/ -abx as per ID, vanc by level, pip/sera -cont IV D5--to D10 -no asa or statin given coagulopathy and hepatic failure -given goals of care as discussed with daughter...will d/c CVA workup, would not tolerate MRI and no therapeutic value (cannot tolerate ASA, statin etc) -speech and swallow---pureed diet ordered for comfort feeds, but able to better tolerate other diet -pall care consult -[facility] nurse, collagenase -DNR/DNI -should consider Hospice given ESLD and MSOF -Ok for floor Yamila ACNP [id number]
--- NOTE | 2018-05-29 09:40 | CON.GI ---
Consult Consult Specialty:: GI Referred by:: Toña Morrison NP Reason for Consultation:: Liver Cirrhosis - History of Present Illness Chief Complaint: Sent from [place] for hypoglycemia History of Present Illness: 67M sent from [place] for evaluation of hypoglycemia. He does not give his own history. He caries a diagnosis of liver cirrhosis and liver cancer per the the H&P. He offers no complaints of abdominal pain. There has been no abdominal imaging performed as of yet. No overt bleeding has been reported. - History Source History Provided By: Medical Record Limitations to Obtaining History: Poor Historian - Past Medical History Hepatobiliary: Yes: Cirrhosis, Other (Liver Cancer by chart) Infectious Disease: Yes: Other (decubiti) - Alcohol/Substance Use Hx Alcohol Use: Yes - Smoking History Smoking history: Unknown if ever smoked Have you smoked in the past 12 months: Yes Aproximately how many cigarettes per day: 20 - Social History Usual Living Arrangement: [facility] ADL: Support Services Place of : [facility] History of Recent Travel: No Home Medications - Allergies Allergies/Adverse Reactions: Allergies Allergy/AdvReac Type Severity Reaction Status Date / Time Fish Containing Products Allergy Intermediate Hives Verified 05/27/18 14:36 [Fish Product Derivatives] - Home Medications Home Medications: Ambulatory Orders Collagenase Clostridium Hist. [Santyl] 1 applic TP DAILY 05/27/18 Silver Sulfadiazine 1% Top Cr [Silvadene] 1 applic TP DAILY 05/27/18 oxyCODONE HCL [Roxicodone -] 5 mg PO Q4H 05/27/18 Family Disease History - Family Disease History Family History: Unable to Obtain Review of Systems - Review of Systems Gastrointestinal: denies: Abdominal Pain Physical Exam-GI Vital Signs: Vital Signs Temperature 96.2 F L 05/29/18 06:00 Pulse Rate 72 05/29/18 06:00 Respiratory Rate 18 05/29/18 06:00 Blood Pressure 112/99 05/29/18 06:00 O2 Sat by Pulse Oximetry (%) 100 05/28/18 20:00 Constitutional: Yes: Calm Eyes: No: Sclera Icterus Cardiovascular: Yes: Regular Rate and Rhythm Respiratory: Yes: Diminished (at bases b/l, poor insp effort) Gastrointestinal Inspection: Yes: Distention (softly protuberant) ...Auscultate: Yes: Normoactive Bowel Sounds ...Palpate: No: Tenderness Edema: No (No LE edema) Neurological: Yes: Other (Awake) Labs: CBC, BMP 05/29/18 05:30 05/29/18 05:30 INR, PTT INR 2.12 (0.82-1.09) H 05/27/18 14:55 Problem List - Problems (1) End-stage liver disease Assessment/Plan: With ? liver cancer If he has liver cancer, I am uncertain by the information I have at this time if he was offered treatment, has been treated or was evaluated for his liver disease Unclear what the goals of care are at this point and this should be the main focus at this point Abdominal US has been ordered Code(s): K72.90 - HEPATIC FAILURE, UNSPECIFIED WITHOUT COMA
[2018-05-29] MEDS: MUPIROCIN 2% TOPICAL OINTMENT FOR DECOLONIZATION NS SCH ×2 (10:29→21:03)
[2018-05-29] MEDS: MORPHINE SULFATE 2 MG/ML VIAL IVPUSH PRN ×2 (11:40→21:04)
--- NOTE | 2018-05-29 13:00 | PN ---
Progress Note (short form) - Note Progress Note: Neurology HISTORY OF PRESENT ILLNESS: Covering for Dr. Jesus 67 year old with recent diagnosis of liver CA who was BIBA from a nursing care facility with ETOH cirrhosis w/ end stage liver disease (ascites, coagulopathy, thrombocytopenia) who was admitted via ED for sepsis likely from multiple deep malodarous decubitus ulcer (most notably L hip), AMS, and ALBERTO. Noted to have hypoglycemia of 24, and bradycardia of 40 systolic en route. He was given IM glucagon and one amp dextrose en route as well as fluids and abx. CT head showed hypodense focus in L frontal for which he was given asa and statin (now discontinued), age indeterminate. Pt responded well to medical mgmt and currently in ICU under close monitoring. Seen at bedside with nurse, awake and alert, was able to tell me he's in the hospital when asked. More awake, alert, interactive. Was complaining of pain, received morphine per nurse. MRI brain ordered, reportedly family not interested in extensive work up. More interested in palliative mgmt, DNR/DNI. Active Medications Chlorhexidine Gluconate (Hibiclens For Decolonization -) 1 applic TP HS [facility] Last Admin: 05/28/18 21:48 Dose: 1 applic Heparin Sodium (Porcine) (Heparin -) 5,000 unit SQ TID [facility] Last Admin: 05/29/18 06:03 Dose: 5,000 unit Piperacillin Sod/Tazobactam (Sod 2.25 gm/ Dextrose) 50 mls @ 100 mls/hr IVPB Q6H-IV [facility]; Protocol Last Admin: 05/29/18 10:29 Dose: 100 mls/hr Dextrose (D10w (500 Ml Bag) -) 500 mls @ 50 mls/hr IV ASDIR [facility] Last Admin: 05/29/18 06:45 Dose: Not Given Morphine Sulfate (Morphine Sulfate) 2 mg IVPUSH Q3H PRN PRN Reason: PAIN LEVEL 1 - 3 Mupirocin (Bactroban Ointment (For Decolonization) -) 1 applic NS BID [facility] Stop: 06/02/18 09:59 Last Admin: 05/29/18 10:29 Dose: 1 applic PHYSICAL EXAMINATION Vital Signs Period Temp Pulse Resp BP Sys/Caceres Pulse Ox Last 24 Hr 96.2 F-97 F 70-76 18-23 94-129/54-99 100-100 GENERAL: disoriented, malnourished, wasted HEAD:atraumatic, EYES: Pupils equal, round and reactive to light, extraocular movements intact, sclera anicteric, conjunctiva clear. No lid lag. EARS, NOSE, THROAT: Ears normal, nares patent, oropharynx clear without exudates. dry mucous membranes. NECK: Normal range of motion, supple without lymphadenopathy, JVD, or masses. LUNGS: Breath sounds equal, clear to auscultation bilaterally. No wheezes, and no crackles. No accessory muscle use. HEART: Regular rate and rhythm, normal S1 and S2 without murmur, rub or gallop. ABDOMEN: Soft, nontender, not distended, normoactive bowel sounds, no guarding, no rebound tenderness MUSCULOSKELETAL: Normal range of motion at all joints. No bony deformities or tenderness. UPPER EXTREMITIES: 2+ pulses, warm, well-perfused. No cyanosis. No clubbing. No peripheral edema. LOWER EXTREMITIES: wrapped in gauze covering ulcers NEUROLOGICAL: Awake, alert, no slurred speech, minimal cooperation on motor exam, lower ext contracted, sensory intact to tactile stim in face CBCD WBC 9.4 K/mm3 (4.0-10.0) 05/29/18 05:30 RBC 2.71 M/mm3 (4.00-5.60) L 05/29/18 05:30 Hgb 7.0 GM/dL (11.7-16.9) L 05/29/18 05:30 Hct 22.3 % (35.4-49) L 05/29/18 05:30 MCV 82.4 fl (80-96) 05/29/18 05:30 MCHC 31.5 g/dl (32.0-35.9) L 05/29/18 05:30 RDW 24.1 % (11.9-15.9) H 05/29/18 05:30 Plt Count 66.9 K/MM3 (134-434) L D 05/28/18 05:30 MPV 9.9 fl (7.5-11.1) 05/29/18 05:30 CMP Sodium 145 mmol/L (136-145) 05/29/18 05:30 Potassium 4.4 mmol/L (3.5-5.1) 05/29/18 05:30 Chloride 112 mmol/L (98-107) H 05/29/18 05:30 Carbon Dioxide 17 mmol/L (21-32) L 05/29/18 05:30 Anion Gap 16 (8-16) 05/29/18 05:30 BUN 93 mg/dL (7-18) H 05/29/18 05:30 Creatinine 2.3 mg/dL (0.7-1.3) H 05/29/18 05:30 Creat Clearance w eGFR 28.59 (>60) 05/29/18 05:30 Calcium 6.9 mg/dL (8.5-10.1) L* 05/29/18 05:30 Total Bilirubin 1.7 mg/dL (0.2-1.0) H 05/29/18 05:30 AST 234 U/L (15-37) H 05/29/18 05:30 ALT 50 U/L (12-78) 05/29/18 05:30 Alkaline Phosphatase 429 U/L (45-117) H D 05/29/18 05:30 Total Protein 7.8 g/dl (6.4-8.2) 05/29/18 05:30 Albumin 1.1 g/dl (3.4-5.0) L 05/29/18 05:30 CT of head -small left frontal subcortical white matter hypodense focus which may represent chronic or acute ischemic disease ASSESSMENT/PLAN: 67 year old with recent diagnosis of liver CA who was BIBA from a nursing care facility with ETOH cirrhosis w/ end stage liver disease (ascites, coagulopathy, thrombocytopenia) who was admitted via ED for sepsis likely from multiple deep malodarous decubitus ulcer (most notably L hip), AMS, and ALBERTO. Noted to have hypoglycemia of 24, and bradycardia of 40 systolic en route. He was given IM glucagon and one amp dextrose en route as well as fluids and abx. CT head showed hypodense focus in L frontal for which he was given asa and statin (now discontinued), age indeterminate. Pt responded well to medical mgmt and currently in ICU under close monitoring. Seen at bedside with nurse, awake and alert, was able to tell me he's in the hospital when asked. Further, said he's in [facility] when asked specific name. Could not give date but is improving. Per notes, DNR/DNI. Discussed with ICU nurse Continue medical optimization IV Abx for sepsis likely 2/2 decub wound care turnings as needed Monitor glucose, maintain normal range IV fluids, hydration as needed to maintain blood pressure support Ordered MRI brain to determine acuity of infarct, age indeterminate on CT, defer per family wishes Consider palliative care DVT ppx Critical care time 35 mins
--- NOTE | 2018-05-29 13:40 | CON.NEP ---
Consult Consult Specialty:: nephrology Referred by:: cricket Reason for Consultation:: thong - History of Present Illness Chief Complaint: thong, sepsis History of Present Illness: transferred with ams, hypoglycemia, and azotemia on labs - History Source History Provided By: Medical Record, Transfer Record Limitations to Obtaining History: Dementia - Past Medical History Hepatobiliary: Yes: Cirrhosis, Other (Liver Cancer by chart) Infectious Disease: Yes: Other (decubiti) - Alcohol/Substance Use Hx Alcohol Use: Yes - Smoking History Smoking history: Unknown if ever smoked Have you smoked in the past 12 months: Yes Aproximately how many cigarettes per day: 20 - Social History Usual Living Arrangement: Jail ADL: Support Services History of Recent Travel: No Home Medications - Allergies Allergies/Adverse Reactions: Allergies Allergy/AdvReac Type Severity Reaction Status Date / Time Fish Containing Products Allergy Intermediate Hives Verified 05/27/18 14:36 [Fish Product Derivatives] - Home Medications Home Medications: Ambulatory Orders Collagenase Clostridium Hist. [Santyl] 1 applic TP DAILY 05/27/18 Silver Sulfadiazine 1% Top Cr [Silvadene] 1 applic TP DAILY 05/27/18 oxyCODONE HCL [Roxicodone -] 5 mg PO Q4H 05/27/18 Nephrology Consult - Height Height: 5 ft 8 in - Weight Weight: 123 lb 8 oz - BMI Body Mass Index (BMI): 18.8 - Lab Results CBC,BMP: CBC, BMP 05/29/18 05:30 05/29/18 05:30 Anion Gap: Anion Gap Anion Gap 16 (8-16) 05/29/18 05:30 - Physical Examination Vital Signs: Vital Signs Temperature 96.2 F L 05/29/18 06:00 Pulse Rate 72 05/29/18 06:00 Respiratory Rate 18 05/29/18 06:00 Blood Pressure 112/99 05/29/18 06:00 O2 Sat by Pulse Oximetry (%) 100 05/28/18 20:00 Assessment/Plan thong - probably prerenal from sepsis, dehydration with hypernatremia maybe atn , unclear what his baseline renal function is, prior labs are from 2011 his renal failure is very advanced, creat levels may be lower due to his low muscle mass severe anemia -?chronic infected decubitus ulcers- probably the source of his sepsis chronic liver disease/hypoalbuminemia hypocalcemia / corrected ca is normal 9.2 underlying cachexia/liver ca/cirrhosis Plan- monitor urine output r/o oliguria prognosis is bad based on underlying dx and current cachectic status
[2018-05-29 15:33] LABS: PLATELET COUNT 65 K/MM3 (134-434)
[2018-05-30] MEDS: DEXTROSE 10%-WATER - 500 ML IV SCH ×4 (06:13→22:27)
--- NOTE | 2018-05-30 07:10 | PN ---
Progress Note, Physician Chief Complaint: Hypothermia Hypoglycemia History of Present Illness: Note for 05/29/18 NAD More alert and awake, responsive - Current Medication List Current Medications: Active Medications Dextrose (D10w (500 Ml Bag) -) 500 mls @ 50 mls/hr IV ASDIR [facility] Last Admin: 05/30/18 06:13 Dose: 50 mls/hr Morphine Sulfate (Morphine Sulfate) 2 mg IVPUSH Q3H PRN PRN Reason: PAIN LEVEL 1 - 3 Last Admin: 05/29/18 21:04 Dose: 2 mg Mupirocin (Bactroban Ointment (For Decolonization) -) 1 applic NS BID [facility] Stop: 06/02/18 09:59 Last Admin: 05/29/18 21:03 Dose: 1 applic - Objective Vital Signs: Vital Signs Temperature 97 F L 05/30/18 06:00 Pulse Rate 65 05/30/18 06:00 Respiratory Rate 20 05/30/18 06:00 Blood Pressure 98/70 05/30/18 06:00 O2 Sat by Pulse Oximetry (%) 94 L 05/29/18 19:44 Constitutional: Yes: No Distress, Cachectic Cardiovascular: Yes: Regular Rate and Rhythm Respiratory: Yes: Regular Gastrointestinal: Yes: Ascites Musculoskeletal: Yes: Joint Stiffness Extremities: Yes: Deformity Edema: No Neurological: Yes: Alert, Pre-Existing Deficit Psychiatric: Yes: Alert Labs: CBC, BMP 05/29/18 05:30 05/29/18 05:30 INR, PTT INR 2.12 (0.82-1.09) H 05/27/18 14:55 Problem List - Problems (1) Acute renal failure Assessment/Plan: -nephrology consult -IVF -possible hepatorenal syndrome -U/S abdomen to confirm -monitor trend Code(s): N17.9 - ACUTE KIDNEY FAILURE, UNSPECIFIED (2) End-stage liver disease Assessment/Plan: due to hx of ETOH Code(s): K72.90 - HEPATIC FAILURE, UNSPECIFIED WITHOUT COMA (3) Hypoglycemia Assessment/Plan: -Improved -On IV dextrose -monitor BG closely Code(s): E16.2 - HYPOGLYCEMIA, UNSPECIFIED (4) Hypothermia Assessment/Plan: -resolved Code(s): T68.XXXA - HYPOTHERMIA, INITIAL ENCOUNTER (5) Infected decubitus ulcer Assessment/Plan: -On IV vanco and Zosyn -ID on board -Wound culture Code(s): L89.90 - PRESSURE ULCER OF UNSPECIFIED SITE, UNSPECIFIED STAGE; L08.9 - LOCAL INFECTION OF THE SKIN AND SUBCUTANEOUS TISSUE, UNSP (6) Sepsis Assessment/Plan: -Elevated LA -repeat in AM -IV abx -IVF -ID consult Code(s): A41.9 - SEPSIS, UNSPECIFIED ORGANISM Assessment/Plan see problem list Pt DNR/DNI Palliative consult to discuss Hospice vs Palliative DVT prophylaxis Dispo: [facility]
[2018-05-30 08:06] LABS: SERUM IRON SATURATION 10 % (15-55); TOTAL IRON BINDING CAPACITY 160 ug/dL (250-450); UIBC 144 ug/dL (111-343)
[2018-05-30] MEDS: MORPHINE SULFATE 2 MG/ML VIAL IVPUSH PRN ×3 (09:00→18:14)
[2018-05-30] MEDS: MUPIROCIN 2% TOPICAL OINTMENT FOR DECOLONIZATION NS SCH ×2 (09:17→22:26)
--- NOTE | 2018-05-30 09:37 | PN ---
Progress Note (short form) - Note Progress Note: Neurology HISTORY OF PRESENT ILLNESS: Covering for Dr. Jesus 67 year old with recent diagnosis of liver CA who was BIBA from a nursing care facility with ETOH cirrhosis w/ end stage liver disease (ascites, coagulopathy, thrombocytopenia) who was admitted via ED for sepsis likely from multiple deep malodarous decubitus ulcer (most notably L hip), AMS, and ALBERTO. Noted to have hypoglycemia of 24, and bradycardia of 40 systolic en route. He was given IM glucagon and one amp dextrose en route as well as fluids and abx. CT head showed hypodense focus in L frontal for which he was given asa and statin (now discontinued), age indeterminate. Pt responded well to medical mgmt and currently in ICU under close monitoring. Moving toward palliative mgmt, DNR/ DNI. Hypotensive this AM. Received morphine for pain overnight. No new neurologic events. Active Medications Dextrose (D10w (500 Ml Bag) -) 500 mls @ 50 mls/hr IV ASDIR [facility] Last Admin: 05/30/18 06:13 Dose: 50 mls/hr Morphine Sulfate (Morphine Sulfate) 2 mg IVPUSH Q3H PRN PRN Reason: PAIN LEVEL 1 - 3 Last Admin: 05/30/18 09:00 Dose: 2 mg Mupirocin (Bactroban Ointment (For Decolonization) -) 1 applic NS BID [facility] Stop: 06/02/18 09:59 Last Admin: 05/30/18 09:17 Dose: 1 applic PHYSICAL EXAMINATION Vital Signs Temperature 97.1 F L 05/30/18 08:00 Pulse Rate 64 05/30/18 08:00 Respiratory Rate 21 05/30/18 08:00 Blood Pressure 83/64 05/30/18 08:00 O2 Sat by Pulse Oximetry (%) 90 L 05/30/18 08:00 GENERAL: disoriented, malnourished, wasted HEAD:atraumatic, EYES: Pupils equal, round and reactive to light, extraocular movements intact, sclera anicteric, conjunctiva clear. No lid lag. EARS, NOSE, THROAT: Ears normal, nares patent, oropharynx clear without exudates. dry mucous membranes. NECK: Normal range of motion, supple without lymphadenopathy, JVD, or masses. LUNGS: Breath sounds equal, clear to auscultation bilaterally. No wheezes, and no crackles. No accessory muscle use. HEART: Regular rate and rhythm, normal S1 and S2 without murmur, rub or gallop. ABDOMEN: Soft, nontender, not distended, normoactive bowel sounds, no guarding, no rebound tenderness MUSCULOSKELETAL: Normal range of motion at all joints. No bony deformities or tenderness. UPPER EXTREMITIES: 2+ pulses, warm, well-perfused. No cyanosis. No clubbing. No peripheral edema. LOWER EXTREMITIES: wrapped in gauze covering ulcers NEUROLOGICAL: Awake, alert, no slurred speech, minimal cooperation on motor exam, lower ext contracted, sensory intact to tactile stim in face CBCD WBC 9.4 K/mm3 (4.0-10.0) 05/29/18 05:30 RBC 2.71 M/mm3 (4.00-5.60) L 05/29/18 05:30 Hgb 7.0 GM/dL (11.7-16.9) L 05/29/18 05:30 Hct 22.3 % (35.4-49) L 05/29/18 05:30 MCV 82.4 fl (80-96) 05/29/18 05:30 MCHC 31.5 g/dl (32.0-35.9) L 05/29/18 05:30 RDW 24.1 % (11.9-15.9) H 05/29/18 05:30 Plt Count 65 K/MM3 (134-434) L 05/29/18 05:30 MPV 9.9 fl (7.5-11.1) 05/29/18 05:30 CMP Sodium 145 mmol/L (136-145) 05/29/18 05:30 Potassium 4.4 mmol/L (3.5-5.1) 05/29/18 05:30 Chloride 112 mmol/L (98-107) H 05/29/18 05:30 Carbon Dioxide 17 mmol/L (21-32) L 05/29/18 05:30 Anion Gap 16 (8-16) 05/29/18 05:30 BUN 93 mg/dL (7-18) H 05/29/18 05:30 Creatinine 2.3 mg/dL (0.7-1.3) H 05/29/18 05:30 Creat Clearance w eGFR 28.59 (>60) 05/29/18 05:30 Calcium 6.9 mg/dL (8.5-10.1) L* 05/29/18 05:30 Total Bilirubin 1.7 mg/dL (0.2-1.0) H 05/29/18 05:30 AST 234 U/L (15-37) H 05/29/18 05:30 ALT 50 U/L (12-78) 05/29/18 05:30 Alkaline Phosphatase 429 U/L (45-117) H D 05/29/18 05:30 Total Protein 7.8 g/dl (6.4-8.2) 05/29/18 05:30 Albumin 1.1 g/dl (3.4-5.0) L 05/29/18 05:30 CT of head -small left frontal subcortical white matter hypodense focus which may represent chronic or acute ischemic disease ASSESSMENT/PLAN: 67 year old with recent diagnosis of liver CA who was BIBA from a nursing care facility with ETOH cirrhosis w/ end stage liver disease (ascites, coagulopathy, thrombocytopenia) who was admitted via ED for sepsis likely from multiple deep malodarous decubitus ulcer (most notably L hip), AMS, and ALBERTO. Noted to have hypoglycemia of 24, and bradycardia of 40 systolic en route. He was given IM glucagon and one amp dextrose en route as well as fluids and abx. CT head showed hypodense focus in L frontal for which he was given asa and statin (now discontinued), age indeterminate. Pt responded well to medical mgmt and currently in ICU under close monitoring. Seen at bedside with nurse, awake and alert, was able to tell me he's in the hospital when asked. Further, said he's in [facility] when asked specific name. Could not give date but is improving. Per notes, DNR/DNI. IV Abx for sepsis likely 2/2 decub wound care turnings as needed D/pal MRI Palliative care DVT ppx Critical care time 35 mins
--- NOTE | 2018-05-30 09:37 | PN ---
Progress Note (short form) - Note Progress Note: Senior Associate note reviewed all nonpalliative meds d/pal all labs cancelled will sign off hospice per family wishes Problem List - Problems (1) Sepsis Code(s): A41.9 - SEPSIS, UNSPECIFIED ORGANISM (2) End-stage liver disease Code(s): K72.90 - HEPATIC FAILURE, UNSPECIFIED WITHOUT COMA (3) Infected decubitus ulcer Code(s): L89.90 - PRESSURE ULCER OF UNSPECIFIED SITE, UNSPECIFIED STAGE; L08.9 - LOCAL INFECTION OF THE SKIN AND SUBCUTANEOUS TISSUE, UNSP (4) Acute renal failure Code(s): N17.9 - ACUTE KIDNEY FAILURE, UNSPECIFIED
--- NOTE | 2018-05-30 10:37 | EKG ---
Test Reason : Blood Pressure : / mmHG Vent. Rate : 079 BPM Atrial Rate : 079 BPM P-R Int : 182 ms QRS Dur : 080 ms QT Int : 392 ms P-R-T Axes : 035 010 107 degrees QTc Int : 449 ms NORMAL SINUS RHYTHM WITH SINUS ARRHYTHMIA BASELINE ARTIFACT LOW VOLTAGE QRS NONSPECIFIC ST AND T WAVE ABNORMALITY ABNORMAL ECG WHEN COMPARED WITH ECG OF 27-MAY-2018 16:27, Confirmed by FENG PITTS, RODOLFO ([id number]) on 05/30/2018 10:36:33 AM Referred By: Britany AYALA Confirmed By:RODOLFO TONEY MD
--- NOTE | 2018-05-30 10:46 | EKG ---
Test Reason : Blood Pressure : / mmHG Vent. Rate : 069 BPM Atrial Rate : 069 BPM P-R Int : 186 ms QRS Dur : 062 ms QT Int : 430 ms P-R-T Axes : 065 -44 -71 degrees QTc Int : 460 ms NORMAL SINUS RHYTHM BASELINE ARTIFACT LEFT AXIS DEVIATION LOW VOLTAGE QRS NONSPECIFIC ST AND T WAVE ABNORMALITY ABNORMAL ECG NO PREVIOUS ECGS AVAILABLE Confirmed by RODOLFO TONEY MD ([id number]) on 05/30/2018 10:46:44 AM Referred By: Confirmed By:RODOLFO TONEY MD
--- NOTE | 2018-05-30 11:07 | PN ---
Teaching Attending Note Name of Resident: Kelsy Webb ATTENDING PHYSICIAN STATEMENT I saw and evaluated the patient. I reviewed the resident's note and discussed the case with the resident. I agree with the resident's findings and plan as documented. SUBJECTIVE: Patient seen and examined in the ICU. Lethargic and mildly tachypniec. Receiving intermittent MS for comfort measures. No acute respiratory distress. DNR/DNI. Intake & Output 05/27/18 05/28/18 05/29/18 05/30/18 23:59 23:59 23:59 23:59 Intake Total 2107 Balance 2107 Weight 123 lb 8 oz 123 lb 8 oz Last Vital Signs Temp Pulse Resp BP Pulse Ox 97.2 F L 69 19 97/69 90 L 05/30/18 10:00 05/30/18 10:00 05/30/18 10:00 05/30/18 10:00 05/30/18 08:00 Active Medications Dextrose (D10w (500 Ml Bag) -) 500 mls @ 50 mls/hr IV ASDIR [facility] Last Admin: 05/30/18 06:13 Dose: 50 mls/hr Morphine Sulfate (Morphine Sulfate) 2 mg IVPUSH Q3H PRN PRN Reason: PAIN LEVEL 1 - 3 Last Admin: 05/30/18 09:00 Dose: 2 mg Mupirocin (Bactroban Ointment (For Decolonization) -) 1 applic NS BID [facility] Stop: 06/02/18 09:59 Last Admin: 05/30/18 09:17 Dose: 1 applic PE: Gen: wasted, elderly man, lethargic HEENT: non icteric, bitemporal wasting PULM: few scattered rhonchi, no wheezes CV: S1S2, (-) murmur ABD; mild tenderness, (+) BS EXT; multiple areas of breakdown on all bony prominences NEURO; lethargic, withdrawals to pain Laboratory Results - last 24 hr 05/28/18 05/28/18 05/29/18 11:00 21:16 00:49 Plt Count Total Counted Neutrophils % (Manual) Band Neutrophils % Lymphocytes % (Manual) Monocytes % (Manual) Eosinophils % (Manual) Basophils % (Manual) Myelocytes % (Man) Promyelocytes % (Man) Blast Cells % (Manual) Metamyelocytes POC Glucometer 57.66804 73.38614 Iron 16 L TIBC 160 L Iron Saturation 10 L Vitamin B12 05/29/18 05/29/18 05/29/18 02:55 05:22 05:30 Plt Count 65 L Total Counted 100 Neutrophils % (Manual) 85.0 H Band Neutrophils % 4.0 Lymphocytes % (Manual) 6.0 L D Monocytes % (Manual) 5 Eosinophils % (Manual) 0.0 Basophils % (Manual) 0.0 Myelocytes % (Man) 0 Promyelocytes % (Man) 0 Blast Cells % (Manual) 0 Metamyelocytes 0 D POC Glucometer 131.09592 125.07530 Iron TIBC Iron Saturation Vitamin B12 05/29/18 05/29/18 05/29/18 05:30 08:44 13:05 Plt Count Total Counted Neutrophils % (Manual) Band Neutrophils % Lymphocytes % (Manual) Monocytes % (Manual) Eosinophils % (Manual) Basophils % (Manual) Myelocytes % (Man) Promyelocytes % (Man) Blast Cells % (Manual) Metamyelocytes POC Glucometer 122.62025 148.84617 Iron TIBC Iron Saturation Vitamin B12 7768 H 05/29/18 21:38 Plt Count Total Counted Neutrophils % (Manual) Band Neutrophils % Lymphocytes % (Manual) Monocytes % (Manual) Eosinophils % (Manual) Basophils % (Manual) Myelocytes % (Man) Promyelocytes % (Man) Blast Cells % (Manual) Metamyelocytes POC Glucometer 119.74857 Iron TIBC Iron Saturation Vitamin B12 IMP: ESLD Hypoglycemia Sepsis likely from multiple decubitus ulcers (?) SBP Supportive / comfort measures Pain control with MS O2 as needed as needed Aspiration precautions IVF For hospice DNR/DNI Dr Pool Critical care time spent in reviewing chart, evaluating patient and formulating plan - 36 minutes.
--- NOTE | 2018-05-30 11:15 | PN ---
Progress Note (short form) - Note Progress Note: Spoke with daughter Shelia today at approximately 11:00 Am this morning to reaffirm further measures for her father Edwardo Brumfield. She would like her father to be DNR/DNI. She would only like to keep IVF going and the BGMs and ISS at this time. She would also like her father to be on comfort measures only besides the IVF and BGMs/ISS as noted before.
--- NOTE | 2018-05-30 12:32 | DS ---
Physical Examination Vital Signs: Vital Signs Temperature 97.2 F L 05/30/18 12:00 Pulse Rate 68 05/30/18 12:00 Respiratory Rate 19 05/30/18 12:00 Blood Pressure 91/79 05/30/18 12:00 O2 Sat by Pulse Oximetry (%) 90 L 05/30/18 08:00 Constitutional: Yes: Thin, Other (lethargic tachypneic) Cardiovascular: Yes: Regular Rate and Rhythm, S1, S2 Respiratory: Yes: Rhonchi, Wheezes Gastrointestinal: Yes: Normal Bowel Sounds, Soft Musculoskeletal: Yes: Other (chronic skin changes with leg wounds malodorous smell dressing soaked) Labs: CBC, BMP 05/29/18 05:30 05/29/18 05:30 Discharge Summary Reason For Visit: HYPONATREMIA Current Active Problems Acute renal failure (Acute) End-stage liver disease (Acute) Hypoglycemia (Acute) Hypothermia (Acute) Infected decubitus ulcer (Acute) Sepsis (Acute) Hospital Course: HIEF COMPLAINT: sepsis, hypothermia PCP: Fatm[facility] HISTORY OF PRESENT ILLNESS: 67 year old with recent diagnosis of liver CA who is BIBA from a nursing care facility with hypoglycemia of 24, and bradycardia of 40 systolic en route. He was given IM glucagon and one amp dextrose en route. Patient is a very poor informant and unable to obtain much history form him and most of history is obtained from EMR. He has multiple decubitus ulcers that were foul smelling. Daughter contacted, Shelia [phone] ER course was notable for: (1) blood cultures taken (2) vancomcyin (3) zosyn Recent Travel: unknown PAST MEDICAL HISTORY: Liver cancer, etoh abuse PAST SURGICAL HISTORY: unknown in hospital course: patient in ICU made DNR/DNI comfort measures morphine iv push intermittently no blood draws looking for transfer to hospice family still wants bgm monitoring on ivf fluids Condition: Guarded - Instructions Referrals: Morro Cagle [Primary Care Provider] - Disposition: S[facility]IOR CARE FACILITY - Home Medications Comprehensive Discharge Medication List: Ambulatory Orders Collagenase Clostridium Hist. [Santyl] 1 applic TP DAILY 05/27/18 Silver Sulfadiazine 1% Top Cr [Silvadene] 1 applic TP DAILY 05/27/18 oxyCODONE HCL [Roxicodone -] 5 mg PO Q4H 05/27/18
--- NOTE | 2018-05-30 13:01 | PN ---
Physical Exam: SUBJECTIVE: Patient seen and examined at bedside. Seems tachypneic and somewhat lethargic. OBJECTIVE: Vital Signs Period Temp Pulse Resp BP Sys/Caceres Pulse Ox Last 24 Hr 97 F-98.1 F 64-69 16-21 80-109/54-82 90-94 GENERAL: The patient is awake, slight, acute distress, cachectic. HEAD: Normal with no signs of trauma. EYES: anicteric; bitemporal wasting . ENT: Ears normal, nares patent, oropharynx clear without exudates, moist mucous membranes. NECK: Trachea midline, full range of motion, supple. LUNGS: Slightly scattered rhonchi and slight wheezing. HEART: Regular rate and rhythm, S1, S2 without murmur, rub or gallop. ABDOMEN: Soft, nontender, nondistended, normoactive bowel sounds, no guarding, no rebound, no hepatosplenomegaly, no masses. EXTREMITIES: 2+ pulses, warm, well-perfused, no edema. NEUROLOGICAL: patient knows he is currently in the hospital PSYCH: Normal mood, normal affect. SKIN: Warm, dry, normal turgor, no rashes or lesions noted Laboratory Results - last 24 hr 05/28/18 05/28/18 05/29/18 11:00 21:16 00:49 Plt Count Total Counted Neutrophils % (Manual) Band Neutrophils % Lymphocytes % (Manual) Monocytes % (Manual) Eosinophils % (Manual) Basophils % (Manual) Myelocytes % (Man) Promyelocytes % (Man) Blast Cells % (Manual) Metamyelocytes POC Glucometer 57.51381 73.94527 Iron 16 L TIBC 160 L Iron Saturation 10 L 05/29/18 05/29/18 05/29/18 02:55 05:22 05:30 Plt Count 65 L Total Counted 100 Neutrophils % (Manual) 85.0 H Band Neutrophils % 4.0 Lymphocytes % (Manual) 6.0 L D Monocytes % (Manual) 5 Eosinophils % (Manual) 0.0 Basophils % (Manual) 0.0 Myelocytes % (Man) 0 Promyelocytes % (Man) 0 Blast Cells % (Manual) 0 Metamyelocytes 0 D POC Glucometer 131.89476 125.48467 Iron TIBC Iron Saturation 05/29/18 05/29/18 05/29/18 08:44 13:05 21:38 Plt Count Total Counted Neutrophils % (Manual) Band Neutrophils % Lymphocytes % (Manual) Monocytes % (Manual) Eosinophils % (Manual) Basophils % (Manual) Myelocytes % (Man) Promyelocytes % (Man) Blast Cells % (Manual) Metamyelocytes POC Glucometer 122.67543 148.51828 119.35523 Iron TIBC Iron Saturation Active Medications Generic Name Dose Route Start Last Admin Trade Name Freq PRN Reason Stop Dose Admin Dextrose 500 mls @ 50 mls/hr 05/29/18 06:00 05/30/18 06:13 D10w (500 Ml Bag) - IV 50 mls/hr ASDIR TIFFANIE Administration Insulin Aspart 1 vial 05/30/18 16:30 Novolog Vial Sliding Scale - SQ ACHS TIFFANIE Protocol Morphine Sulfate 2 mg 05/29/18 11:14 05/30/18 09:00 Morphine Sulfate IVPUSH 2 mg Q3H PRN Administration PAIN LEVEL 1 - 3 Mupirocin 1 applic 05/28/18 10:00 05/30/18 09:17 Bactroban Ointment (For Decolonization) - NS 06/02/18 09:59 1 applic BID TIFFANIE Administration ASSESSMENT/PLAN: Patient is a 67 y/o male with PMH of ?recent liver ca diagnosis, alcoholic hepatitis, cirrhosis, who was brought in from snf after having change in mental status and was found to be hypoglycemic and bradycardic, in addition to having multiple unstagable infected ulcers. Incidentally found to have a hypodense subcortical white matter on head CT, age in undetermined, where he was given asa and lipitor for. Patient's family made him DNR/DNI as of yesterday and only want comfort measures from this point on. -giving patient o2 as needed -morphine for pain control -c/w insulin sliding scale -monitor blood sugar and to avoid hypoglycemic episodes -no blood draws -comfort measures F/E/N D10W; 500@50mls/hr monitor BGM and continue with ISS dispo: med/surg Problem List - Problems (1) Acute renal failure Code(s): N17.9 - ACUTE KIDNEY FAILURE, UNSPECIFIED (2) End-stage liver disease Code(s): K72.90 - HEPATIC FAILURE, UNSPECIFIED WITHOUT COMA (3) Hypoglycemia Code(s): E16.2 - HYPOGLYCEMIA, UNSPECIFIED (4) Sepsis Code(s): A41.9 - SEPSIS, UNSPECIFIED ORGANISM Visit type - Emergency Visit Emergency Visit: Yes ED Registration Date: 05/27/18 Care time: The patient presented to the Emergency Department on the above date and was hospitalized for further evaluation of their emergent condition. - New Patient This patient is new to me today: Yes Date on this admission: 05/30/18 - Critical Care Critical Care patient: Yes Total Critical Care Time (in minutes): 35 Critical Care Statement: The care of this patient involved high complexity decision making to prevent further life threatening deterioration of the patient 's condition and/or to evaluate & treat vital organ system(s) failure or risk of failure.
--- NOTE | 2018-05-30 13:50 | PN ---
Progress Note, Physician History of Present Illness: Pt seen and examined at bedside. He is lethargic. He is now on comfort care. - Current Medication List Current Medications: Active Medications Dextrose (D10w (500 Ml Bag) -) 500 mls @ 50 mls/hr IV ASDIR TIFFANIE Last Admin: 05/30/18 13:09 Dose: 50 mls/hr Insulin Aspart (Novolog Vial Sliding Scale -) 1 vial SQ ACHS TIFFANIE; Protocol Morphine Sulfate (Morphine Sulfate) 2 mg IVPUSH Q3H PRN PRN Reason: PAIN LEVEL 1 - 3 Last Admin: 05/30/18 13:10 Dose: 2 mg Mupirocin (Bactroban Ointment (For Decolonization) -) 1 applic NS BID TIFFANIE Stop: 06/02/18 09:59 Last Admin: 05/30/18 09:17 Dose: 1 applic - Objective Vital Signs: Vital Signs Temperature 97.2 F L 05/30/18 12:00 Pulse Rate 68 05/30/18 12:00 Respiratory Rate 19 05/30/18 12:00 Blood Pressure 91/79 05/30/18 12:00 O2 Sat by Pulse Oximetry (%) 90 L 05/30/18 08:00 Constitutional: Yes: Calm Eyes: Yes: Conjunctiva Clear HENT: Yes: Atraumatic Cardiovascular: Yes: S1, S2 Respiratory: Yes: On Nasal O2 Gastrointestinal: Yes: Soft Genitourinary: Yes: Incontinence Edema: Yes Neurological: Yes: Lethargy Labs: CBC, BMP 05/29/18 05:30 05/29/18 05:30 INR, PTT INR 2.12 (0.82-1.09) H 05/27/18 14:55 Assessment/Plan Current Medications Generic Name Dose Route Start Last Admin Trade Name Freq PRN Reason Stop Dose Admin Dextrose 500 mls @ 50 mls/hr 05/29/18 06:00 05/30/18 13:09 D10w (500 Ml Bag) - IV 50 mls/hr ASDIR TIFFANIE Administration Insulin Aspart 1 vial 05/30/18 16:30 Novolog Vial Sliding Scale - SQ ACHS TIFFANIE Protocol Morphine Sulfate 2 mg 05/29/18 11:14 05/30/18 13:10 Morphine Sulfate IVPUSH 2 mg Q3H PRN Administration PAIN LEVEL 1 - 3 Mupirocin 1 applic 05/28/18 10:00 05/30/18 09:17 Bactroban Ointment (For Decolonization) - NS 06/02/18 09:59 1 applic BID TIFFANIE Administration Laboratory Tests 05/27/18 05/27/18 05/27/18 14:30 20:08 21:48 Sodium 146 H Creatinine 2.0 H POC Glucometer 282.84780 Random Glucose 24 L* D Urine Protein Negative Urine Blood Negative Impression 1. ALBERTO 2. liver cirrhosis 3. hypoglycemia Plan - pt now on comfort care - discussed with ICU - family do not want blood draws - will follow PRN - management per primary team Dr De
[2018-05-30] MEDS: INSULIN SLIDING SCALE (NOVOLOG) 1 VIAL SQ SCH ×2 (17:01→22:27)
[2018-05-31 06:02] VITALS: TEMP 97
[2018-05-31] MEDS: DEXTROSE 10%-WATER - 500 ML IV SCH (06:05)
[2018-05-31] MEDS: INSULIN SLIDING SCALE (NOVOLOG) 1 VIAL SQ SCH ×3 (06:19→18:21)
[2018-05-31] MEDS ORDERED: MORPHINE SULFATE 2 MG/ML VIAL IVPUSH PRN (08:38)
--- NOTE | 2018-05-31 09:25 | PN ---
Progress Note (short form) - Note Progress Note: Neurology HISTORY OF PRESENT ILLNESS: Covering for Dr. Jesus 67 year old with recent diagnosis of liver CA who was BIBA from a nursing care facility with ETOH cirrhosis w/ end stage liver disease (ascites, coagulopathy, thrombocytopenia) who was admitted via ED for sepsis likely from multiple deep malodarous decubitus ulcer (most notably L hip), AMS, and ALBERTO. Noted to have hypoglycemia of 24, and bradycardia of 40 systolic en route. He was given IM glucagon and one amp dextrose en route as well as fluids and abx. CT head showed hypodense focus in L frontal for which he was given asa and statin (now discontinued), age indeterminate. Pt responded well to medical mgmt and currently in ICU under close monitoring. Moving toward palliative mgmt, DNR/ DNI. downgraded to floor status overnight, no new neurologic events, resting comfortably without neurologic complaints. Active Medications Dextrose (D10w (500 Ml Bag) -) 500 mls @ 75 mls/hr IV ASDIR [facility] Last Admin: 05/31/18 06:05 Dose: 75 mls/hr Insulin Aspart (Novolog Vial Sliding Scale -) 1 vial SQ ACHS [facility]; Protocol Last Admin: 05/31/18 06:19 Dose: Not Given Morphine Sulfate (Morphine Sulfate) 2 mg IVPUSH Q3H PRN PRN Reason: PAIN LEVEL 1 - 3 PHYSICAL EXAMINATION Vital Signs Period Temp Pulse Resp BP Sys/Caceres Pulse Ox Last 24 Hr 97 F-97.6 F 55-69 14-19 72-97/54-79 88-90 GENERAL: disoriented, malnourished, wasted HEAD:atraumatic, EYES: Pupils equal, round and reactive to light, extraocular movements intact, sclera anicteric, conjunctiva clear. No lid lag. EARS, NOSE, THROAT: Ears normal, nares patent, oropharynx clear without exudates. dry mucous membranes. NECK: Normal range of motion, supple without lymphadenopathy, JVD, or masses. LUNGS: Breath sounds equal, clear to auscultation bilaterally. No wheezes, and no crackles. No accessory muscle use. HEART: Regular rate and rhythm, normal S1 and S2 without murmur, rub or gallop. ABDOMEN: Soft, nontender, not distended, normoactive bowel sounds, no guarding, no rebound tenderness MUSCULOSKELETAL: Normal range of motion at all joints. No bony deformities or tenderness. UPPER EXTREMITIES: 2+ pulses, warm, well-perfused. No cyanosis. No clubbing. No peripheral edema. LOWER EXTREMITIES: wrapped in gauze covering ulcers NEUROLOGICAL: Awake, alert, no slurred speech, minimal cooperation on motor exam, lower ext contracted, sensory intact to tactile stim in face CBCD WBC 9.4 K/mm3 (4.0-10.0) 05/29/18 05:30 RBC 2.71 M/mm3 (4.00-5.60) L 05/29/18 05:30 Hgb 7.0 GM/dL (11.7-16.9) L 05/29/18 05:30 Hct 22.3 % (35.4-49) L 05/29/18 05:30 MCV 82.4 fl (80-96) 05/29/18 05:30 MCHC 31.5 g/dl (32.0-35.9) L 05/29/18 05:30 RDW 24.1 % (11.9-15.9) H 05/29/18 05:30 Plt Count 65 K/MM3 (134-434) L 05/29/18 05:30 MPV 9.9 fl (7.5-11.1) 05/29/18 05:30 CMP Sodium 145 mmol/L (136-145) 05/29/18 05:30 Potassium 4.4 mmol/L (3.5-5.1) 05/29/18 05:30 Chloride 112 mmol/L (98-107) H 05/29/18 05:30 Carbon Dioxide 17 mmol/L (21-32) L 05/29/18 05:30 Anion Gap 16 (8-16) 05/29/18 05:30 BUN 93 mg/dL (7-18) H 05/29/18 05:30 Creatinine 2.3 mg/dL (0.7-1.3) H 05/29/18 05:30 Creat Clearance w eGFR 28.59 (>60) 05/29/18 05:30 Calcium 6.9 mg/dL (8.5-10.1) L* 05/29/18 05:30 Total Bilirubin 1.7 mg/dL (0.2-1.0) H 05/29/18 05:30 AST 234 U/L (15-37) H 05/29/18 05:30 ALT 50 U/L (12-78) 05/29/18 05:30 Alkaline Phosphatase 429 U/L (45-117) H D 05/29/18 05:30 Total Protein 7.8 g/dl (6.4-8.2) 05/29/18 05:30 Albumin 1.1 g/dl (3.4-5.0) L 05/29/18 05:30 CT of head -small left frontal subcortical white matter hypodense focus which may represent chronic or acute ischemic disease ASSESSMENT/PLAN: 67 year old with recent diagnosis of liver CA who was BIBA from a nursing care facility with ETOH cirrhosis w/ end stage liver disease (ascites, coagulopathy, thrombocytopenia) who was admitted via ED for sepsis likely from multiple deep malodarous decubitus ulcer (most notably L hip), AMS, and ALBERTO. Noted to have hypoglycemia of 24, and bradycardia of 40 systolic en route. He was given IM glucagon and one amp dextrose en route as well as fluids and abx. CT head showed hypodense focus in L frontal for which he was given asa and statin (now discontinued), age indeterminate. Pt responded well to medical mgmt and has been downgraded to floor from ICU IV Abx for sepsis likely 2/2 decub wound care turnings as needed D/pal MRI Palliative care DVT ppx neurologically no new events
--- NOTE | 2018-05-31 11:10 | PN ---
Progress Note, Physician Chief Complaint: Hypothermia Hypoglycemia History of Present Illness: Note for 05/29/18 NAD More alert and awake, responsive awaiting bed at [facility] only - Current Medication List Current Medications: Active Medications Dextrose (D10w (500 Ml Bag) -) 500 mls @ 75 mls/hr IV ASDIR TIFFANIE Last Admin: 05/31/18 06:05 Dose: 75 mls/hr Insulin Aspart (Novolog Vial Sliding Scale -) 1 vial SQ ACHS [facility]; Protocol Last Admin: 05/31/18 06:19 Dose: Not Given Morphine Sulfate (Morphine Sulfate) 2 mg IVPUSH Q3H PRN PRN Reason: PAIN LEVEL 1 - 3 - Objective Vital Signs: Vital Signs Temperature 97 F L 05/31/18 08:00 Pulse Rate 60 05/31/18 08:00 Respiratory Rate 14 05/31/18 08:00 Blood Pressure 80/54 05/31/18 08:00 O2 Sat by Pulse Oximetry (%) 90 L 05/31/18 08:00 Constitutional: Yes: Well Nourished, No Distress, Calm Cardiovascular: Yes: Regular Rate and Rhythm Respiratory: Yes: Regular Neurological: Yes: Alert, Pre-Existing Deficit Psychiatric: Yes: Alert Labs: CBC, BMP 05/29/18 05:30 05/29/18 05:30 INR, PTT INR 2.12 (0.82-1.09) H 05/27/18 14:55 Problem List - Problems (1) Acute renal failure Assessment/Plan: -nephrology consult -possible hepatorenal syndrome Code(s): N17.9 - ACUTE KIDNEY FAILURE, UNSPECIFIED (2) End-stage liver disease Assessment/Plan: due to hx of ETOH Code(s): K72.90 - HEPATIC FAILURE, UNSPECIFIED WITHOUT COMA (3) Hypoglycemia Assessment/Plan: -Improved -On IV dextrose -monitor BG closely Code(s): E16.2 - HYPOGLYCEMIA, UNSPECIFIED (4) Hypothermia Assessment/Plan: -resolved Code(s): T68.XXXA - HYPOTHERMIA, INITIAL ENCOUNTER (5) Infected decubitus ulcer Assessment/Plan: -ID on board -Wound culture: Microbiology 05/29/18 00:05 Decubiti Gram Stain - Final 05/29/18 00:05 Decubiti Wound Culture - Preliminary Pseudomonas Aeruginosa Providencia Stuartii Pending Organism 05/27/18 15:10 Blood - Peripheral Venous Blood Culture - Preliminary Pending Organism 05/27/18 14:30 Blood - Peripheral Venous Blood Culture - Preliminary NO GROWTH OBTAINED AFTER 72 HOURS, INCUBATION TO CONTINUE FOR 2 DAYS. 05/27/18 14:30 Urine - Urine - Catheterized Urine Culture - Final NO GROWTH OBTAINED Code(s): L89.90 - PRESSURE ULCER OF UNSPECIFIED SITE, UNSPECIFIED STAGE; L08.9 - LOCAL INFECTION OF THE SKIN AND SUBCUTANEOUS TISSUE, UNSP (6) Sepsis Assessment/Plan: -comfort measures only Code(s): A41.9 - SEPSIS, UNSPECIFIED ORGANISM Assessment/Plan see problem list
[2018-05-31] MEDS ORDERED: DEXTROSE 50%-WATER - 25 GM/50 ML VIAL IVPUSH PRN ×2 (12:33→19:45)
[2018-05-31] MEDS ORDERED: DEXTROSE 50%-WATER 25 GM/50 ML DISP.SYRIN ONE ×2 (13:17→18:17)
[2018-05-31] MEDS ORDERED: DEXTROSE 10%-WATER - 500 ML IV SCH (18:08)
[2018-05-31] MEDS ORDERED: DEXTROSE 50%-WATER - 25 GM/50 ML VIAL IVPUSH ONE (18:15)
[2018-05-31 20:59] VITALS: BP 125/78; PULSE 45
== END 2018-05-31 20:45 | DRG 871 ==
LOC: JER 14:16 → JERBED 18:27 → JICU 20:56 → J6S 05-31 08:33
PROVIDERS: ADMIT Internal Medicine Pulmonary Disease; ATTEND Family Medicine
DX: A41.9 Sepsis, unspecified organism (principal); L89.213 Pressure ulcer of right hip, stage 3; L89.224 Pressure ulcer of left hip, stage 4; N18.6 End stage renal disease; E43 Unspecified severe protein-calorie malnutrition; E87.2 Acidosis; R64 Cachexia; N17.9 Acute kidney failure, unspecified; E87.0 Hyperosmolality and hypernatremia; R65.20 Severe sepsis without septic shock; E16.2 Hypoglycemia, unspecified; R62.7 Adult failure to thrive; K70.31 Alcoholic cirrhosis of liver with ascites; K72.90 Hepatic failure, unspecified without coma; F10.11 Alcohol abuse, in remission; T68.XXXA Hypothermia, initial encounter; Z68.20 Body mass index [BMI] 20.0-20.9, adult; E83.51 Hypocalcemia; E86.0 Dehydration; E88.09 Other disorders of plasma-protein metabolism, not elsewhere classified; D69.6 Thrombocytopenia, unspecified; J45.909 Unspecified asthma, uncomplicated; Z87.891 Personal history of nicotine dependence; L89.892 Pressure ulcer of other site, stage 2; Z85.05 Personal history of malignant neoplasm of liver; Z66 Do not resuscitate; D64.9 Anemia, unspecified; R00.1 Bradycardia, unspecified
CPT/HCPCS: 36415; 70450-TC; 71045-TC-FY; 80048; 80053; 81003; 82140; 82272; 82607; 82728; 82746; 82803; 82962; 83036; 83540; 83550; 83605; 84439; 84443; 84484; 85025; 85610; 85730; 87040; 87070; 87076; 87086; 87186; 87205; 93005; 93010; 99284-25; G0480; J1644; J7030